=== PATIENT | male | born 1965 | race Two or more races ===

== ENCOUNTER 2024-11-19 20:58 | Inpatient (IN) | payer OTHER, MEDICAID ==
[~2024-11-19] VITALS: Ht 175.3 cm; Wt 68.0 kg
[2024-11-19] MEDS: VANCOMYCIN 1GM/250ML KIT 250 ML IV ONE (21:30)
--- NOTE | 2024-11-19 22:09 | DVH ---
EXAMINATION: CT CT L FOOT WO CONTRAST INDICATION: wound COMPARISON: None TECHNIQUE: CT of the left foot was performed without contrast. Volume transverse images were obtained reconstructed in multiple planes using bone and soft tissue algorithms. CTDIvol: 8 mGy. DLP: 260 mGy-cm. FINDINGS: Assessment is limited by lack of comparison exams, including recent radiographs, and also by patient motion artifact in the forefoot. Large 2.6 cm high-grade partial-thickness ulcer underlying the 2nd metatarsal head, with gas tract or fistula extending to the inferior cortex. Erosion of the underlying plantar aspects of the metatarsa l head and proximal phalangeal base. Significant soft tissue swelling. Copious gas extends through th e 1st webspace to the dorsal foot, extending proximally to the lateral ankle, and further superior al jackelyn the anterior muscle compartment of the lower leg. Along the extensor compartment of the lower leg at the level of the distal tibiofibular diaphyses, an ill-defined but encapsulated appearing collect ion measures a proximally 3.4 x 0.9 cm axially (image 60/246). Otherwise circumferential soft tissue swelling is present. No additional area of osseous erosion is identified. No acute fracture, or periostitis. [id number] degenerative changes of the tarsomet atarsal joints. IMPRESSION: 1. Exam limited as above. 2. Large plantar ulcer underlying the 2nd metatarsal head. Osteomyelitis of the 2nd metatarsal head a nd proximal phalangeal base, with high likelihood for further extent within the forefoot, possibly mi dfoot and hindfoot. 3. Extension of infection within soft tissues to the proximal extent of the acquired field of view in the lower leg. An abscess is partially imaged along the extensor tendon compartment. Orthopedic con sultation is recommended.
[2024-11-19 22:20] LABS: Hematocrit 41.0 % (41.0-53.0); Hemoglobin 13.6 g/dL (13.5-17.5); Mean Corpuscular Hemoglobin 28.0 pg (28.0-32.0); Mean Corpuscular Volume 84.5 fL (80.0-100.0); Nucleated Red Blood Cells % 0.0 %
[2024-11-19 22:24] VITALS: PULSE 89; RESP 17; O2SAT 99
[2024-11-19 22:31] LABS: Alanine Aminotransferase 36 U/L (7-40); Albumin 3.8 g/dL (3.2-4.8); Alkaline Phosphatase 112 U/L (46-116); Anion Gap 8 (5-15); BUN/Creatinine Ratio 12.1 (10.0-20.0); Bilirubin, Total 0.7 mg/dL (0.2-1.0); Blood Urea Nitrogen 14 mg/dL (9-23); Calcium 9.0 mg/dL (8.7-10.4); Carbon Dioxide 26 mmol/L (20-31); Chloride 99 mmol/L (98-107); Potassium 4.8 mmol/L (3.5-5.1); Total Protein 7.1 g/dL (5.7-8.2)
[2024-11-19 22:36] LABS: Lactic Acid w/Reflex 2.4 mmol/L (0.4-2.0)
[2024-11-19 22:37] LABS: Sodium 133 mmol/L (136-145)
[2024-11-19 22:38] LABS: Glucose 424 mg/dL (74-106)
[2024-11-19] MEDS: PIPERACILLIN-TAZOB 3.375GM 100 ML IV ONE (22:43)
--- NOTE | 2024-11-19 22:58 | ED.PDOC ---
Musculoskeletal HPI Comments 59-year-old male complaining of left foot pain and swelling going sitting into his lower leg. States the swelling started four days ago. He says wound started on the top of his foot with bad smell. Patient states he is diabetic. Only takes metformin for his diabetes. Denies any injury. Chief Complaint: Lower Extremity Time Seen by MD: 21:07 Reviewed Notes: Nurses Notes Allergies: Coded Allergies: NO KNOWN ALLERGIES (Unverified , 11/19/24) Information Source: Patient Mode of Arrival: Ambulatory Location: Left Extremity Location: Foot Past Medical History PAST MEDICAL HISTORY: DM, Denies Surgical History: Denies all surgeries Constitutional: denies: chills, diaphoresis, fatigue, fever, malaise, sweats, weakness, others EENTM: denies: blurred vision, double vision, ear bleeding, ear discharge, ear drainage, ear pain, ear ringing, eye pain, eye redness, hearing loss, mouth pain, mouth swelling, nasal discharge, nose bleeding, nose congestion, nose pain, photophobia, tearing, throat pain, throat swelling, voice changes, others Respiratory: denies: cough, hemoptysis, orthopnea, SOB at rest, shortness of breath, SOB with excertion, stridor, wheezing, others Cardiovascular: denies: chest pain, dizzy spells, diaphoresis, Dyspnea on exertion, edema, irregular heart beat, left arm pain, lightheadedness, palpitations, PND, syncope, others Gastrointestinal: denies: abdomen distended, abdominal pain, blood streaked bowels, constipated, diarrhea, dysphagia, difficulty swallowing, hematemesis, melena, nausea, poor appetite, poor fluid intake, rectal bleeding, rectal pain, vomiting, others Genitourinary: denies: burning, dysuria, flank pain, frequency, hematuria, incontinence, penile discharge, penile sore, pain, testicle pain, testicle swelling, urgency, others Neurological: denies: dizziness, fainting, headache, left sided numbness, left sided weakness, numbness, paresthesia, pre-existing deficit, right sided numbness, right sided weakness, seizure, speech problems, tingling, tremors, weakness, others Musculoskeletal: reports: joint swelling, muscle pain; denies: back pain, gout, joint pain, muscle stiffness, neck pain, others Integumetry: reports: wounds; denies: bruises, change in color, change in hair/nails, dryness, laceration, lesions, lumps, rash, others Physical Exam General Appearance: Moderate Distress, Normal HEENT: Normal ENT Inspection, Pharynx Normal, TMs Normal Neck: Full Range of Motion, Non-Tender, Normal, Normal Inspection Respiratory: Chest Non-Tender, Lungs Clear, No Accessory Muscle Use, No Respiratory Distress, Normal Breath Sounds Cardiovascular: No Edema, No JVD, No Murmur, No Gallop, Normal Peripheral Pulses, Regular Rate/Rhythm Breast Exam: Deferred Gastrointestinal: No Organomegaly, Non Tender, No Pulsatile Mass, Normal Bowel Sounds, Soft Genitalia: Deferred Pelvic: Deferred Rectal: Deferred Extremities: No calf tenderness, Normal capillary refill, Normal inspection, Normal range of motion, Non-tender, No pedal edema Musculoskeletal : Location: Left Extremity Location: Other (Erythema noted in the left lower extremity extending up to the mid calf region. Patient reports tenderness in the foot and all the way up to the mid calf/mid leg region.) Apperance: Normal Neurologic: Alert, academic dean II-XII nml as Tested, No Motor Deficits, Normal Affect, Normal Mood, No Sensory Deficits Cerebellar Function: Normal Reflexes: Normal Skin: Dry, Warm, Wounds (Wound to the left foot, small ulceration/drainage coming out of the top of the foot. 2 x 2 area of duskiness noted to be top of the foot. Foul odor.) Lymphatic: No Adenopathy Was a procedure done? Was a procedure done?: No Differential Diagnosis EXT Differential Diagnosis: Cellulitis, Deep Vein Thrombosis, Neurovascular injury, Other (Osteomyelitis, necrotizing fasciitis, gangrene) X-Ray, Labs, Meds, VS Vital Signs Date Time Temp Pulse Resp B/P (MAP) Pulse Ox O2 Delivery O2 Flow Rate FiO2 11/19/24 22:24 100.4 89 17 106/73 (84) 99 100.4 11/19/24 22:24 89 17 99 Room Air* 0 21 11/19/24 21:00 98.7 88 18 138/74 100 98.7 Lab Test 11/19/24 21:44 Range/Units White Blood Count 23.1 H 4.4-10.8 10^3/uL Red Blood Count 4.86 4.5-5.90 10^6/uL Hemoglobin 13.6 13.5-17.5 g/dL Hematocrit 41.0 41.0-53.0 % Mean Corpuscular Volume 84.5 80.0-100.0 fL Mean Corpuscular Hemoglobin 28.0 28.0-32.0 pg Mean Corpuscular Hemoglobin Concent 33.2 32.0-36.0 g/dL Red Cell Distribution Width 14.5 H 11.8-14.3 % Platelet Count 507 H 140-450 10^3/uL Mean Platelet Volume 8.4 6.9-10.8 fL Neutrophils (%) (Auto) 85.9 H 37.0-80.0 % Lymphocytes (%) (Auto) 7.4 L 10.0-50.0 % Monocytes (%) (Auto) 6.4 0.0-12.0 % Eosinophils (%) (Auto) 0.1 0.0-7.0 % Basophils (%) (Auto) 0.2 0.0-2.0 % Neutrophils # (Auto) 19.8 H 1.6-8.6 10 ^3/uL Lymphocytes # (Auto) 1.7 0.4-5.4 10 ^3/uL Monocytes # (Auto) 1.5 H 0-1.3 10 ^3/uL Eosinophils # (Auto) 0 0-0.8 10 ^3/uL Basophils # (Auto) 0 0-0.2 10 ^3/uL Nucleated Red Blood Cells 0.0 % Sodium Level 133 L 136-145 mmol/L Potassium Level 4.8 3.5-5.1 mmol/L Chloride Level 99 98-107 mmol/L Carbon Dioxide Level 26 20-31 mmol/L Anion Gap 8 5-15 Blood Urea Nitrogen 14 9-23 mg/dL Creatinine 1.16 0.700-1.30 mg/dL Glomerular Filtration Rate Calc 73 >90 mL/min BUN/Creatinine Ratio 12.1 10.0-20.0 Serum Glucose 424 *H 74-106 mg/dL Lactic Acid Level 2.4 *H 0.4-2.0 mmol/L Calcium Level 9.0 8.7-10.4 mg/dL Total Bilirubin 0.7 0.2-1.0 mg/dL Aspartate Amino Transferase (AST) 32 13-40 U/L Alanine Aminotransferase (ALT) 36 7-40 U/L Alkaline Phosphatase 112 46-116 U/L Total Protein 7.1 5.7-8.2 g/dL Albumin 3.8 3.2-4.8 g/dL Current Medications Medications (Trade) Dose Ordered Sig/Ralph Route Start Time Stop Time Status Last Admin Piperacillin Sod/ Tazobactam Sod 100 ml @ 100 mls/hr ONCE ONCE IV 11/19/24 21:30 11/19/24 22:29 DC 11/19/24 22:43 X-Ray, Labs, Meds, VS Comment CT left foot: MPRESSION: 1. Exam limited as above. 2. Large plantar ulcer underlying the 2nd metatarsal head. Osteomyelitis of the 2nd metatarsal head and proximal phalangeal base, with high likelihood for fu rther extent within the forefoot, possibly midfoot and hindfoot. 3. Extension of infection within soft tissues to the proximal extent of the acquired field of view in the lower leg. An abscess is partially imaged along the extensor tendon compartment. Orthopedic consultation is recommended. Consulted with , hiv prevention specialist on-call. He states that general surgery he can handle [id number] amputation and recommended call general surgeon transition mgr rn Spoke with , general surgery on-call. He will come in to evaluate the patient and the need for surgery. Patient is started on vancomycin and Zosyn Patient placed in room two Time of 1ST Reevaluation: 23:10 Reevaluation 1ST: Unchanged Patient Education/Counseling: Diagnosis, Treatment Family Education/Counseling: Diagnosis, Treatment Sepsis Sepsis Reasesment Focused Exam Orders: Laboratory Tests 11/19/24 21:44: Lactic Acid Level 2.4 Departure 1 Departure Time of Disposition: 23:04 Impression: Primary Impression: Osteomyelitis of ankle and foot Disposition: 09 ADMITTED INPATIENT Condition: Critical Critical Care Note Critical Care Time?: No Stability Stability form required: No Heart Score Heart Score: Heart Score Response (Comments) Value History N/A 0 EKG N/A 0 Age N/A 0 Risk Factors N/A 0 Troponin N/A 0 Total 0 MEERA NARVAEZ Nov 19, 2024 22:58
[2024-11-19] MEDS: SODIUM CHLORIDE 0.9% 2,100 ML IV ONE (23:15)
[2024-11-19 23:34] LABS: INR 1.14 (0.9-1.15); Prothrombin Time 11.9 sec (9.3-11.8)
--- NOTE | 2024-11-19 23:49 | DVHINCON2 ---
Date of service: Nov 19, 2024 History of Present Illness 59-year-old diabetic male complaining of over four day history of swelling and pain in the left foot. Patient reports fevers. Past Medical History Diabetes Past Surgical History None Family History Noncontributory Social History No alcohol or IV drugs. Reports tobacco use. Allergies: Coded Allergies: NO KNOWN ALLERGIES (Unverified , 11/19/24) Vital Signs Vital Signs Date Time Temp Pulse Resp B/P (MAP) Pulse Ox O2 Delivery O2 Flow Rate FiO2 11/19/24 22:24 100.4 89 17 106/73 (84) 99 100.4 11/19/24 22:24 Room Air* 0 21 Physical Exam GEN: Age-appropriate male in no acute distress. Alert. HEENT: Normocephalic atraumatic. Moist mucous membranes. Anicteric sclerae. CV: RRR Respiratory: CTAB ABD: Soft Left lower extremity: There is dry eschar involving the dorsum of the foot with foul-smelling purulent drainage coming from the left foot with erythema and fluctuance extending proximal his ankle. There is a large ulcer in the plantar surface ulcer with purulent drainage. CT of the left foot: Large 2.6 cm high-grade partial-thickness ulcer underlying the 2nd metatarsal head, with gas tract or fistula extending to the inferior cortex. Erosion of the underlying plantar aspects of the metatarsal head and proximal phalangeal base. Significant soft tissue swelling. Copious gas extends through the 1st webspace to the dorsal foot, extending proximally to the lateral ankle, and further superior along the anterior muscle compartment of the lower leg. Along the extensor compartment of the lower leg at the level of the distal tibiofibular diaphyses, an ill-defined but encapsulated appearing collection measures a proximally 3.4 x 0.9 cm axially (image 60/246). Otherwise circumferential soft tissue swelling is present. No additional area of osseous erosion is identified. No acute fracture, or periostitis. Mild-to- moderate degenerative changes of the tarsometatarsal joints. Labs/Diagnostic Data Labs Test 11/19/24 21:44 Range/Units White Blood Count 23.1 H 4.4-10.8 10^3/uL Red Blood Count 4.86 4.5-5.90 10^6/uL Hemoglobin 13.6 13.5-17.5 g/dL Hematocrit 41.0 41.0-53.0 % Mean Corpuscular Volume 84.5 80.0-100.0 fL Mean Corpuscular Hemoglobin 28.0 28.0-32.0 pg Mean Corpuscular Hemoglobin Concent 33.2 32.0-36.0 g/dL Red Cell Distribution Width 14.5 H 11.8-14.3 % Platelet Count 507 H 140-450 10^3/uL Mean Platelet Volume 8.4 6.9-10.8 fL Neutrophils (%) (Auto) 85.9 H 37.0-80.0 % Lymphocytes (%) (Auto) 7.4 L 10.0-50.0 % Monocytes (%) (Auto) 6.4 0.0-12.0 % Eosinophils (%) (Auto) 0.1 0.0-7.0 % Basophils (%) (Auto) 0.2 0.0-2.0 % Neutrophils # (Auto) 19.8 H 1.6-8.6 10 ^3/uL Lymphocytes # (Auto) 1.7 0.4-5.4 10 ^3/uL Monocytes # (Auto) 1.5 H 0-1.3 10 ^3/uL Eosinophils # (Auto) 0 0-0.8 10 ^3/uL Basophils # (Auto) 0 0-0.2 10 ^3/uL Nucleated Red Blood Cells 0.0 % Sodium Level 133 L 136-145 mmol/L Potassium Level 4.8 3.5-5.1 mmol/L Chloride Level 99 98-107 mmol/L Carbon Dioxide Level 26 20-31 mmol/L Anion Gap 8 5-15 Blood Urea Nitrogen 14 9-23 mg/dL Creatinine 1.16 0.700-1.30 mg/dL Glomerular Filtration Rate Calc 73 >90 mL/min BUN/Creatinine Ratio 12.1 10.0-20.0 Serum Glucose 424 *H 74-106 mg/dL Lactic Acid Level 2.4 *H 0.4-2.0 mmol/L Calcium Level 9.0 8.7-10.4 mg/dL Total Bilirubin 0.7 0.2-1.0 mg/dL Aspartate Amino Transferase (AST) 32 13-40 U/L Alanine Aminotransferase (ALT) 36 7-40 U/L Alkaline Phosphatase 112 46-116 U/L C-Reactive Protein High Sensitivity > 20.00 H <1.0 mg/dL Total Protein 7.1 5.7-8.2 g/dL Albumin 3.8 3.2-4.8 g/dL Assessment 1. 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 Plan/Recommendation 1. Left [id number] guillotine amputation. Once the infection resolves he will need a revision to a [id number] amputation closure. Informed consent: The surgery and its risks including but not limited to infection, bleeding requiring possible blood transfusion, possible perioperative HI or stroke were explained to the patient. All questions were answered to his satisfaction. He expressed verbal understanding and wished to proceed with the surgery. Plan discussed with: Patient ADIEL HERNANDES MD Nov 19, 2024 23:49
[2024-11-20] MEDS ORDERED: MORPHINE SULFATE INJ 2 MG/ml SYRG IV PRN (01:00)
[2024-11-20] MEDS ORDERED: ACETAMINOPHEN 325 MG TAB PO PRN (01:00)
[2024-11-20] MEDS ORDERED: NITROGLYCERIN 0.4 MG SL TAB SL PRN (01:00)
[2024-11-20] MEDS ORDERED: DOCUSATE SOD 100 MG CAP PO PRN (01:00)
[2024-11-20] MEDS ORDERED: ONDANSETRON HCL 4 MG/2 ML VIAL IV PRN ×2 (01:00→10:45)
[2024-11-20] MEDS: ENOXAPARIN SOD 40 MG/0.4 ML SYRINGE SC SCH (01:00)
[2024-11-20] MEDS ORDERED: HYDROcodone-ACET 5/325MG TAB PO PRN (01:00)
[2024-11-20] MEDS: SODIUM CHLORIDE 0.9% 1,000 ML IV SCH ×3 (01:00→18:00)
[2024-11-20] MEDS ORDERED: VANCOMYCIN PER PHARMACY 0 MG IV SCH (01:00)
[2024-11-20] MEDS: VANCOMYCIN 1GM/250ML KIT 250 ML IV ONE (02:29)
[2024-11-20] MEDS ORDERED: LATA0.008 EACHEYE (03:44)
[2024-11-20] MEDS ORDERED: ATOR20TA50 PO (03:44)
[2024-11-20] MEDS ORDERED: ERGO1CAP12 PO (03:44)
[2024-11-20] MEDS: INSULIN LANTUS (GLARGINE) 1 /0.01ml (100units/ml) SC SCH (03:45)
[2024-11-20] MEDS ORDERED: DEXTROSE (50%) 50ML SYRG IV PRN (03:45)
[2024-11-20 04:00] LABS: COVID19 ANTIGEN SOFIA FIA NEGATIVE (NEGATIVE)
[2024-11-20] MEDS: INSULIN LANTUS (GLARGINE) 1 /0.01ml (100units/ml) SC ONE ×2 (04:15→05:45)
[2024-11-20] MEDS: ACCU-CHEK COMFORT CURVE STRIP VI ONE (04:15)
[2024-11-20] MEDS ORDERED: PIPERACILLIN-TAZOB 3.375GM 100 ML IV SCH (06:00)
[2024-11-20] MEDS: InsuLIN REG 1unit/0.01ml Soln (100units/ml) SC SCH (06:00)
[2024-11-20] MEDS: ACCU-CHEK COMFORT CURVE STRIP VI SCH (06:00)
[2024-11-20] MEDS: CLINDAMYCIN 600MG IV 50 ML IV SCH (06:00)
[2024-11-20] MEDS: CEFEPIME 1GM/50ML 50 ML IV SCH (06:00)
[2024-11-20] MEDS ORDERED: INSULIN LANTUS (GLARGINE) 1 /0.01ml (100units/ml) SC SCH (06:30)
[2024-11-20 06:41] LABS: Urine Protein, UAD Negative (Negative)
[2024-11-20 06:42] LABS: Opiate Scree,Urine Neg (NEGATIVE)
[2024-11-20 06:46] LABS: Amphetamine Screen, Urine Neg (NEGATIVE); Barbiturate Scree,Urine Neg (NEGATIVE); Benzodiazephine Screen, Urine Neg (NEGATIVE); Cannabinoid Screen, Urine Neg (NEGATIVE); Cocaine Screen, Urine Neg (NEGATIVE); Phencyclidine Screen, Urine Neg (NEGATIVE)
[2024-11-20 06:59] LABS: Hematocrit 34.7 % (41.0-53.0); Hemoglobin 11.8 g/dL (13.5-17.5); Mean Corpuscular Hemoglobin 28.5 pg (28.0-32.0); Mean Corpuscular Volume 83.9 fL (80.0-100.0); Nucleated Red Blood Cells % 0.0 %
[2024-11-20 07:04] LABS: Chloride 104 mmol/L (98-107); Potassium 4.2 mmol/L (3.5-5.1); Sodium 137 mmol/L (136-145)
[2024-11-20 07:05] LABS: Anion Gap 6 (5-15); Carbon Dioxide 27 mmol/L (20-31)
[2024-11-20 07:06] LABS: Calcium 8.0 mg/dL (8.7-10.4)
[2024-11-20 07:08] LABS: INR 1.15 (0.9-1.15); Partial Thromboplastin Time 29.9 SEC (24.5-34.5); Prothrombin Time 12.0 sec (9.3-11.8)
[2024-11-20 07:11] LABS: BUN/Creatinine Ratio 15.7 (10.0-20.0); Blood Urea Nitrogen 14 mg/dL (9-23)
[2024-11-20 07:14] LABS: Glucose 294 mg/dL (74-106)
--- NOTE | 2024-11-20 07:18 | DVHHPRES ---
History of Present Illness Resident Creating Document: LYNETTE TRAMMELL RESIDENT History of Present Illness Mr. Raman is a 49-year-old male with a known history of diabetes mellitus who presented to the emergency department with worsening pain, swelling, and foul- smelling drainage from a chronic diabetic ulcer on the dorsum of his left foot. The ulcer has been present for approximately one year, but symptoms have significantly worsened over the past four days. He reports severe pain rated 10/10, radiating to the ankle, aggravated by walking and relieved with rest. Examination revealed erythema, foul-smelling purulent drainage, and a black eschar. Surgical consultation was obtained for further evaluation. Past medical history: Diabetes mellitus Past surgical history: Denies any surgeries Family history: Reviewed, noncontributory Social history: smokes 3-5 cigarettes per day since 25 years, denies drinking alcohol, drug use lives with: Family PCP: Dr. Keane Review of Systems Constitutional: No: Fever, Chills, Sweats, Weakness, Malaise, Other Eyes: No: Pain, Vision change, Conjunctivae inflammation, Eyelid inflammation, Other, Redness ENT: No: Ear pain, Ear discharge, Nose pain, Nose discharge, Nose congestion, Mouth pain, Mouth swelling, Throat pain, Throat swelling, Other Respiratory: No: Cough, Dry, Shortness of breath, SOB with excertion, Wheezing, Hemoptysis, Pleuritic Pain, Sputum, Wheezing, Other Cardiovascular: No: Chest Pain, Palpitations, Orthopnea, Paroxysmal Noc. Dyspnea, Edema, Lt Headedness, Other Gastrointestinal: No: Nausea, Vomiting, Abdominal Pain, Diarrhea, Constipation, Melena, Hematochezia, Other Genitourinary: No Dysuria, No Frequency, No Incontinence, No Hematuria, No Retention, No Other Musculoskeletal: foot pain Skin: No: Rash, Lesions, Jaundice, Bruising, Other Neurological: No: Weakness, Numbness, Incoordination, Change in speech, Confusion, Seizures, Other Allergies: Coded Allergies: NO KNOWN ALLERGIES (Unverified , 11/19/24) Medications Current Medications Medications Dose Ordered Sig/Ralph Route Start Time Stop Time Status Last Admin Dose Admin Acetaminophen 325 mg Q4HP PRN PO 11/20/24 01:00 Acetaminophen/ Hydrocodone Bitart 1 tab Q4HP PRN PO 11/20/24 01:00 Ondansetron HCl 4 mg Q4HP PRN IV 11/20/24 01:00 Docusate Sodium 100 mg BIDPRN PRN PO 11/20/24 01:00 Morphine Sulfate 2 mg Q4HPRN PRN IV 11/20/24 01:00 Enoxaparin Sodium 40 mg DAILY SC 11/20/24 01:00 11/20/24 01:00 40 MG Nitroglycerin 0.4 mg Q5MINP PRN SL 11/20/24 01:00 Morphine Sulfate 2 mg Q30M PRN IV 11/20/24 01:00 Vancomycin HCl 0 ml @ 0 mls/hr UD IV 11/20/24 01:00 UNV Clindamycin Phosphate 50 ml @ 50 mls/hr Q8HR IV 11/20/24 06:00 11/20/24 06:00 50 MLS/HR Cefepime HCl 50 ml @ 12.5 mls/hr Q8HR IV 11/20/24 06:00 Sodium Chloride 1,000 ml @ 100 mls/hr Q10H IV 11/20/24 03:45 11/20/24 03:51 100 MLS/HR Diagnostic Test (Pha) 1 strip Q6HR 11/20/24 06:00 11/20/24 06:00 1 STRIP Insulin Human Regular Q6HR SC 11/20/24 06:00 Dextrose 50 ml UD PRN IV 11/20/24 03:45 Atorvastatin Calcium 40 mg HS PO 11/20/24 22:00 Latanoprost 1 drop BID EACHEYE 11/20/24 10:00 UNV Insulin Glargine 20 units DAILY@1000 SC 11/21/24 10:00 Exam Vital Signs Vital Signs Date Time Temp Pulse Resp B/P (MAP) Pulse Ox O2 Delivery O2 Flow Rate FiO2 11/19/24 22:24 100.4 89 17 106/73 (84) 99 100.4 11/19/24 22:24 Room Air* 0 21 Exam General: Patient alert and oriented in person, place and time. Patient f ollowing commands. In moderate distress HEENT: Normocephalic, atraumatic, moist mucous membranes Respiratory/pulmonary: Clear lungs bilaterally, vesicular murmurs present in almost all lung baker, no associated crackles or wheezes. Cardiovascular: Normal heart sounds S1 and S2 with no associated murmurs Abdomen: Abdomen nondistended, there is no pain to palpation in any of the ab dominal quadrants, no palpable masses. Extremities: left foot ulcer on dorsal side, black eschar and erythema and left- sided 1+ pitting edema Peripheral Pulses: 3+ Radial (R). 3+ Radial (L). 3+ Dorsalis pedis (R). 3+ Dorsalis pedis(L) Skin: No rashes or pruritus, there is no sacral edema present at this time. Neurological: Intact cranial nerves with no focal neurologic deficits Labs/Xrays Labs Test 11/20/24 06:00 11/20/24 05:58 11/20/24 02:25 11/19/24 23:44 Range/Units Urine Color Light-yellow Yellow Urine Clarity Clear Clear Urine pH 5.5 5.0-9.0 Urine Specific [place] 1.042 H 1.001-1.035 Urine Protein Negative Negative Urine Ketones 1+ H Negative Urine Blood Negative Negative /uL Urine Nitrite Negative Negative Urine Bilirubin Negative Negative Urine Urobilinogen Normal Negative mg/dL Urine Leukocyte Esterase Negative Negative /uL Urine RBC 3 0 - 3 /hpf Urine Microscopic WBC 1 0-3 /HPF Urine Squamous Epithelial Cells Few <5 /hpf Urine Bacteria None seen None Seen /hpf Urine Glucose 4+ H Normal mg/dL Urine Opiates Screen Neg NEGATIVE Urine Fentanyl Screen Neg NEGATIVE Urine Barbiturates Screen Neg NEGATIVE Urine Phencyclidine Screen Neg NEGATIVE Urine Amphetamines Screen Neg NEGATIVE Urine Benzodiazepines Screen Neg NEGATIVE Urine Cocaine Screen Neg NEGATIVE Urine Cannabinoids Screen Neg NEGATIVE White Blood Count 20.1 H 4.4-10.8 10^3/uL Red Blood Count 4.14 L 4.5-5.90 10^6/uL Hemoglobin 11.8 L 13.5-17.5 g/dL Hematocrit 34.7 #L 41.0-53.0 % Mean Corpuscular Volume 83.9 80.0-100.0 fL Mean Corpuscular Hemoglobin 28.5 28.0-32.0 pg Mean Corpuscular Hemoglobin Concent 34.0 32.0-36.0 g/dL Red Cell Distribution Width 14.3 11.8-14.3 % Platelet Count 402 140-450 10^3/uL Mean Platelet Volume 8.3 6.9-10.8 fL Neutrophils (%) (Auto) 83.0 H 37.0-80.0 % Lymphocytes (%) (Auto) 8.8 L 10.0-50.0 % Monocytes (%) (Auto) 7.6 0.0-12.0 % Eosinophils (%) (Auto) 0.4 0.0-7.0 % Basophils (%) (Auto) 0.2 0.0-2.0 % Neutrophils # (Auto) 16.6 H 1.6-8.6 10 ^3/uL Lymphocytes # (Auto) 1.8 0.4-5.4 10 ^3/uL Monocytes # (Auto) 1.5 H 0-1.3 10 ^3/uL Eosinophils # (Auto) 0.1 0-0.8 10 ^3/uL Basophils # (Auto) 0 0-0.2 10 ^3/uL Nucleated Red Blood Cells 0.0 % Sodium Level 137 136-145 mmol/L Potassium Level 4.2 3.5-5.1 mmol/L Chloride Level 104 98-107 mmol/L Carbon Dioxide Level 27 20-31 mmol/L Anion Gap 6 5-15 Calcium Level 8.0 L 8.7-10.4 mg/dL Influenza Type A Antigen Negative Negative Influenza Type B Antigen Negative Negative SARS-CoV-2 Antigen (Rapid) Negative NEGATIVE Lactic Acid Level 1.8 0.4-2.0 mmol/L Test 11/19/24 21:44 Range/Units Total Bilirubin 0.7 0.2-1.0 mg/dL Aspartate Amino Transferase (AST) 32 13-40 U/L Alanine Aminotransferase (ALT) 36 7-40 U/L Alkaline Phosphatase 112 46-116 U/L C-Reactive Protein High Sensitivity > 20.00 H <1.0 mg/dL Total Protein 7.1 5.7-8.2 g/dL Albumin 3.8 3.2-4.8 g/dL SEPSIS Sepsis Screen Date sepsis recognized/suspect: Nov 19, 2024 Time Sepsis recognized/suspect: 2229 Recent Procedure: No On Antibiotic Therapy: No Respiratory Rate >20: No Heart Rate >90: No Temp<36 C (96.8 F) or >38.3 C: Yes SBP <90 or MAP <65 mmHG: No New Acute Mental Status Change: No Is the patient on CPAP, BIPAP,: No Physician Orders Obtain Consent For Anesthesia (11/19/24 23:35) Obtain Consent For: (11/19/24 23:35) PTPTT (11/20/24 04:00) Npo (Nothing By Mouth) Diet (11/20/24 Breakfast) Admit (11/20/24 00:47) Allergies (11/20/24 00:47) Code Status (11/20/24 00:47) Acetaminophen Tablet (Tylenol Tablet) (11/20/24 01:00) Hydrocodone-Acet 5/325mg Tab (Hatley 5/32 (11/20/24 01:00) Ondansetron Hcl (Zofran) (11/20/24 01:00) Docusate Sodium Capsule (Colace Capsule) (11/20/24 01:00) Complete Blood Count (11/21/24 04:00) Condition: Serious (11/20/24 00:47) Bedrest With Bathroom Privileg (11/20/24 00:47) Morphine Sulfate Injection (11/20/24 01:00) Enoxaparin Sodium (Lovenox) (11/20/24 01:00) Nitroglycerin Sublingual (Ntrostat Subli (11/20/24 01:00) Morphine Sulfate Injection (11/20/24 01:00) Oxygen By Nasal Cannula (11/20/24 00:47) Stat Ekg For Chest Pain (11/20/24 00:47) Notify Md Of Changes From Base (11/20/24 00:47) Primary Clinician For 24 Hours (11/20/24 00:47) Emergency Dysrhythmia Protocol (11/20/24 00:47) Rhythm Strips Once Every Shift (11/20/24 00:47) Vancomycin Per Pharmacy (11/20/24 01:00) Clindamycin 600mg Iv (Cleocin Iv) (11/20/24 06:00) Wound Culture W/ Gs (11/21/24 04:00) Lactic Acid W/ Reflex Order (11/21/24 04:00) Hemoglobin A1c (11/20/24 02:22) Wound Culture W/ Gs (11/20/24 03:01) Cefepime 1gm/ 50ml (Maxipime 1gm/50ml) (11/20/24 06:00) Sodium Chloride 0.9% (11/20/24 03:45) Glucose Blood (Accu-Chek Comfort Curve T (11/20/24 06:00) Insulin R (Human) (Insulin R) (11/20/24 06:00) Dextrose 50% Syringe (11/20/24 03:45) Basic Metabolic Panel (11/20/24 03:37) Thyroid Stimulating Hormone (11/20/24 03:41) Atorvastatin (Lipitor) (11/20/24 22:00) Ergocalciferol (Vitamin D 50,000 Unit) (11/20/24 10:00) Latanoprost (Xalatan) (11/20/24 10:00) Insulin Lantus (Glargine) (Lantus) (11/21/24 10:00) Laboratory Tests Test 11/19/24 21:44 11/19/24 23:44 11/20/24 05:58 Lactic Acid Level 2.4 mmol/L (0.4-2.0) *H 1.8 mmol/L (0.4-2.0) White Blood Count 23.1 10^3/uL (4.4-10.8) H 20.1 10^3/uL (4.4-10.8) H Medications Medications Dose Ordered Sig/Ralph Route Start Time Stop Time Status Last Admin Dose Admin Clindamycin Phosphate 50 ml @ 50 mls/hr Q8HR IV 11/20/24 06:00 11/20/24 06:00 50 MLS/HR Diagnostic Test (Pha) 1 strip ONCE ONCE 11/20/24 04:15 11/20/24 04:16 DC 11/20/24 04:15 1 STRIP Diagnostic Test (Pha) 1 strip Q6HR 11/20/24 06:00 11/20/24 06:00 1 STRIP Enoxaparin Sodium 40 mg DAILY SC 11/20/24 01:00 11/20/24 01:00 40 MG Insulin Glargine 20 units ONCE ONCE SC 11/20/24 04:15 11/20/24 04:16 DC 11/20/24 05:45 20 UNITS Piperacillin Sod/ Tazobactam Sod 100 ml @ 100 mls/hr ONCE ONCE IV 11/19/24 21:30 11/19/24 22:29 DC 11/19/24 22:43 100 MLS/HR Sodium Chloride 1,000 ml @ 60 mls/hr [id number] IV 11/20/24 01:00 11/20/24 03:42 DC 11/20/24 01:00 60 MLS/HR Sodium Chloride 1,000 ml @ 100 mls/hr Q10H IV 11/20/24 03:45 11/20/24 03:51 100 MLS/HR Sodium Chloride 2,100 ml @ 2,100 mls/hr ONCE ONCE IV 11/19/24 23:15 11/20/24 00:14 DC 11/19/24 23:15 2,100 MLS/HR Vancomycin HCl 250 ml @ 250 mls/hr ONCE ONCE IV 11/19/24 21:30 11/19/24 22:29 DC 11/19/24 23:30 250 MLS/HR Assessment/Plan Assessment/Plan # Severe sepsis with lactic acidosis due to gangrene # 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 Osteomyelitis of the 2nd metatarsal head and proximal phalangeal base, with high likelihood for further extent within the forefoot, possibly midfoot and hindfoot. Extension of infection within soft tissues to the proximal extent of the acquired field of view in the lower leg. An abscess is partially imaged along the extensor tendon compartment. - Surgery consulted, stated patient will undergo Left ieyrf-pth-ctya guillotine amputation. Once the infection resolves he will need a revision to a pmlsv-blo-sucy amputation closure. - IV fluids given - pain management with IV morphine 2 mg, Hatley 5 D # uncontrolled diabetes mellitus with hyperglycemia - Lantus 20 units, mild sliding scale started # dyslipidemia - Atorvastatin 40 mg # glaucoma - Latanoprost # vit. D deficiency - Vitamin-D 83786 units per week PPI prophylaxis: Not indicated DVT prophylaxis: Lovenox 40 mg Goals of care addressed with the patient for more than 27 minutes: Full code status Case discussed with Dr. Deleon , patient and nurse Plan discussed with: Patient My Orders Orders - LYNETTE TRAMMELL RESIDENT Procedure Category Date Status Time Admit ADMIT 11/20/24 Transmitted 00:47 Allergies [place] 11/20/24 In Process 00:47 Code Status CODE 11/20/24 Transmitted 00:47 Acetaminophen Tablet PHA 11/20/24 In Process (Tylenol Tablet) 01:00 Hydrocodone-Acet PHA 11/20/24 In Process 5/325mg Tab (Hatley 01:00 Ondansetron Hcl PHA 11/20/24 In Process (Zofran) 01:00 Docusate Sodium PHA 11/20/24 In Process Capsule (Colace 01:00 Complete Blood Count LAB 11/21/24 Verified 04:00 Condition: Serious [place] 11/20/24 In Process 00:47 Bedrest With Bathroom AZ 11/20/24 In Process Privileg 00:47 Morphine Sulfate PHA 11/20/24 In Process Injection 01:00 Enoxaparin Sodium PHA 11/20/24 In Process (Lovenox) 01:00 Nitroglycerin PHA 11/20/24 In Process Sublingual (Ntrostat 01:00 Morphine Sulfate PHA 11/20/24 In Process Injection 01:00 Oxygen By Nasal RT 11/20/24 Transmitted Cannula 00:47 Stat Ekg For Chest AZ 11/20/24 In Process Pain 00:47 Notify Md Of Changes AZ 11/20/24 In Process From Base 00:47 Primary Clinician For AZ 11/20/24 In Process 24 Hours 00:47 Emergency Dysrhythmia AZ 11/20/24 In Process Protocol 00:47 Rhythm Strips Once [place] 11/20/24 In Process Every Shift 00:47 Vancomycin Per PHA 11/20/24 Pending Pharmacy 01:00 Clindamycin 600mg Iv PHA 11/20/24 In Process (Cleocin Iv) 06:00 Wound Culture W/ Gs GERMAN 11/21/24 Logged 04:00 Lactic Acid W/ Reflex LAB 11/21/24 Verified Order 04:00 Hemoglobin A1c LAB 11/20/24 In Process 02:22 Date of Service: Nov 20, 2024 Billing Provider: JACQUELINE DELEON MD Common Visit Codes: [id number] INP/OBS CARE (HIGH) Secondary Visit Codes: [id number] CARE PLAN 30 MINUTES LYNETTE TRAMMELL Nov 20, 2024 07:18
[2024-11-20] MEDS: Lidocaine/Epinephrine 1%-1:100,000 30ML VL ONE (08:29)
[2024-11-20] MEDS: ceFAZolin 1GM VL ONE (08:29)
[2024-11-20] MEDS ORDERED: fentaNYL CITRATE 100 MCG/2 ML VL ONE ×2 (08:53→09:52)
[2024-11-20] MEDS ORDERED: PROPOFOL 10 MG/ML 20 ML IV ONE (08:53)
[2024-11-20] MEDS ORDERED: HYDROmorphone HCL 2 MG/ML VL/or syr ONE (08:53)
[2024-11-20] MEDS ORDERED: PHENYLEPHRINE HCL 10 MG/ML VL ONE (09:27)
[2024-11-20 10:27] VITALS: PULSE 86; RESP 15; O2SAT 100
[2024-11-20] MEDS ORDERED: ACETAMINOPHEN IV 1000 MG/100ML (10MG/ML) IV PRN (10:45)
[2024-11-20] MEDS ORDERED: HYDROmorphone HCL 2 MG/ML VL/or syr IV PRN (10:45)
--- NOTE | 2024-11-20 10:45 | DVHOP2 ---
Operative Report - 2 Report Details Date: 11/20/24 Preop Diagnosis: Large left diabetic foot ulcer with wet gangrene Postop Diagnosis: Same Surgeon: Adiel Le MD Solvent Process Extractor Operator: None Anesthesiologist: Dr. Espinoza Anesthesia: General Consent: The surgery and its risks including but not limited to infection, bleeding requiring possible blood transfusion with the risk of hepatitis or HIV infection, possible perioperative AL or stroke were explained to the patient. All questions were answered to his satisfaction. He expressed verbal understanding and wished to proceed with the surgery. Complications: None Estimated Blood Loss: 20 mL Fluids: 700 mL Findings: 25 minutes of tourniquet time at 230 mmHg Name of Procedure Performed Left ipjzd-vuf-xgcu guillotine amputation Procedure Details Procedure Details: After induction of general anesthesia, patient's left lower extremity was prepped and draped in standard surgical fashion. An Esmarch was used to exsanguinate the left lower extremity and the tourniquet was turned on to 230 mmHg. A circumferential incision was made about 10 cm above the malleolus and incision extended through the anterior compartments to the bone. Both the tibia and fibula were amputated at this level. The anterior tibial and peroneal vessels were suture ligated using 0 Vicryl sutures. Dissection proceeded through the posterior compartments and the posterior tibial vessels were suture ligated using 0 Vicryl sutures. He amputation was then completed and specimen was then sent off to pathology. The tourniquet was then turned off with a total tourniquet time of 25 minutes. Surgical dressing was then applied. Sponge, needle, instrument count at the end of the case were reported to be correct by the nursing staff. The patient tolerated procedure well and was awake, extubated and transferred to recovery in stable condition. Specimen: Left foot Condition Stable Disposition Still a Patient ADIEL LE MD Nov 20, 2024 10:45
[2024-11-20] MEDS: VANCOMYCIN 1.25GM/250ML 250 ML IV SCH (12:55)
[2024-11-20] MEDS: CEFEPIME 2GM/50ML NS 50 ML IV SCH (14:31)
--- NOTE | 2024-11-20 14:54 | DVHPNRES ---
Progress Note Date Seen: Nov 20, 2024 Resident Creating Document: EVE JACOBSEN RESIDENT Medical Necessity Reason Pt with a Central, PICC or Fol: No Medical Necessity Reason Objective vital signs Vital Sign Date Time Temp Pulse Resp B/P (MAP) Pulse Ox O2 Delivery O2 Flow Rate FiO2 11/20/24 11:00 82 14 167/84 (111) 97 11/20/24 10:27 98.6 98.6 11/20/24 10:27 Mask 6.0 11/20/24 10:27 100 medications Current Medications Medications Dose Ordered Sig/Ralph Route Start Time Stop Time Status Last Admin Dose Admin Acetaminophen 325 mg Q4HP PRN PO 11/20/24 01:00 Acetaminophen/ Hydrocodone Bitart 1 tab Q4HP PRN PO 11/20/24 01:00 Ondansetron HCl 4 mg Q4HP PRN IV 11/20/24 01:00 Docusate Sodium 100 mg BIDPRN PRN PO 11/20/24 01:00 Morphine Sulfate 2 mg Q4HPRN PRN IV 11/20/24 01:00 Nitroglycerin 0.4 mg Q5MINP PRN SL 11/20/24 01:00 Morphine Sulfate 2 mg Q30M PRN IV 11/20/24 01:00 Vancomycin HCl 0 ml @ 0 mls/hr UD IV 11/20/24 01:00 Clindamycin Phosphate 50 ml @ 50 mls/hr Q8HR IV 11/20/24 06:00 11/20/24 13:42 50 MLS/HR Diagnostic Test (Pha) 1 strip Q6HR 11/20/24 06:00 11/20/24 06:00 1 STRIP Insulin Human Regular Q6HR SC 11/20/24 06:00 11/20/24 14:24 10 UNITS Dextrose 50 ml UD PRN IV 11/20/24 03:45 Atorvastatin Calcium 40 mg HS PO 11/20/24 22:00 Latanoprost 1 drop HS EACHEYE 11/20/24 22:00 Insulin Glargine 20 units DAILY@1000 SC 11/21/24 10:00 Cefepime HCl 50 ml @ 12.5 mls/hr Q8HR IV 11/20/24 14:00 11/20/24 14:31 12.5 MLS/HR Vancomycin HCl 250 ml @ 200 mls/hr Q12H IV 11/20/24 10:00 11/20/24 12:55 200 MLS/HR Sodium Chloride 1,000 ml @ 75 mls/hr [id number] IV 11/20/24 10:45 laboratory and microbiology Laboratory Tests 11/20/24 05:58 Test 11/20/24 05:58 Range/Units Serum Glucose 294 #H 74-106 mg/dL Problem List/Assessment/Plan Plan discussed with: Patient EVE JACOBSEN RESIDENT Nov 20, 2024 14:54
[2024-11-20 15:30] VITALS: BP 156/83; PULSE 91; RESP 20; TEMP 100.1; O2SAT 98
[2024-11-20] MEDS ORDERED: METF-372 PO (16:40)
[2024-11-20 17:22] VITALS: TEMP 99.7
--- NOTE | 2024-11-20 18:48 | DVHPNRES ---
Progress Note Date Seen: Nov 20, 2024 Resident Creating Document: EVE JACOBSEN RESIDENT Medical Necessity Reason Pt with a Central, PICC or Fol: No Subjective Review of Systems Zachary Raman is a 59-year-old male who presented to the emergency department with worsening pain, swelling, and foul-smelling drainage from a chronic diabetic ulcer on the dorsum of his left foot. The ulcer has been present for approximately one year, but symptoms have significantly worsened over the past four days. He reports severe pain rated 10/10, radiating to the ankle aggravated by walking and relieved by rest. Denies fever, chills, dyspnea, chest pain, unintentional weight loss, bleeding and motor or sensory deficits. Past medical history: Dyslipidemia, diabetes mellitus, diabetic foot, glaucoma, vitamin-D deficiency Surgical history: Denies Family history: Noncontributory Social history: Lives in [place] with family. Current smoker (approximately 10 pack-year history of smoking). Denies current alcohol and other drug abuse. Allergies: Denies Home medication: Atorvastatin 20 mg p.o. daily, vitamin-D, latanoprost, metformin 1000 mg p.o. b.i.d.. Patient seen and examined at bedside. Patient is currently immediate status post operation of wqhzi-vjf-ztdr amputation. We will optimize pain treatment and we will progress diet. Objective vital signs Vital Sign Date Time Temp Pulse Resp B/P (MAP) Pulse Ox O2 Delivery O2 Flow Rate FiO2 11/20/24 17:22 99.7 99.7 11/20/24 15:40 Room Air* 0 21 11/20/24 15:30 91 20 156/83 (107) 98 medications Current Medications Medications Dose Ordered Sig/Ralph Route Start Time Stop Time Status Last Admin Dose Admin Acetaminophen 325 mg Q4HP PRN PO 11/20/24 01:00 Acetaminophen/ Hydrocodone Bitart 1 tab Q4HP PRN PO 11/20/24 01:00 Ondansetron HCl 4 mg Q4HP PRN IV 11/20/24 01:00 Docusate Sodium 100 mg BIDPRN PRN PO 11/20/24 01:00 Morphine Sulfate 2 mg Q4HPRN PRN IV 11/20/24 01:00 Nitroglycerin 0.4 mg Q5MINP PRN SL 11/20/24 01:00 Morphine Sulfate 2 mg Q30M PRN IV 11/20/24 01:00 Vancomycin HCl 0 ml @ 0 mls/hr UD IV 11/20/24 01:00 Clindamycin Phosphate 50 ml @ 50 mls/hr Q8HR IV 11/20/24 06:00 11/20/24 13:41 50 MLS/HR Diagnostic Test (Pha) 1 strip Q6HR 11/20/24 06:00 11/20/24 18:12 1 STRIP Insulin Human Regular Q6HR SC 11/20/24 06:00 11/20/24 18:12 4 UNITS Dextrose 50 ml UD PRN IV 11/20/24 03:45 Atorvastatin Calcium 40 mg HS PO 11/20/24 22:00 Latanoprost 1 drop HS EACHEYE 11/20/24 22:00 Insulin Glargine 20 units DAILY@1000 SC 11/21/24 10:00 Cefepime HCl 50 ml @ 12.5 mls/hr Q8HR IV 11/20/24 14:00 11/20/24 14:31 12.5 MLS/HR Vancomycin HCl 250 ml @ 200 mls/hr Q12H IV 11/20/24 10:00 11/20/24 12:55 200 MLS/HR Sodium Chloride 1,000 ml @ 75 mls/hr [id number] IV 11/20/24 10:45 11/20/24 18:00 75 MLS/HR Examination Patient lying in bed, in no acute distress General: Lucid, afebrile, mucosae are moist Cardiovascular: Normal S1 and S2. No murmurs, gallops or rubs Respiratory: Normal ventilation mechanics. Clear lung sounds on auscultation Abdomen: Soft, nontender, no organomegaly, normal bowel sounds MSK/skin: Mobilizes 4 limbs. Skin is dry and warm. Fdgsw-jeu-llpn amputation under gauze. Neurological: Oriented in 3 spheres. No motor no sensitive deficits. Pupils are isocoric and reactive laboratory and microbiology Laboratory Tests 11/20/24 05:58 Test 11/20/24 05:58 Range/Units Serum Glucose 294 #H 74-106 mg/dL Problem List/Assessment/Plan Problem List/Assessment/Plan ASSESSMENT Left diabetic foot complicated with osteomyelitis of the 2nd metatarsal head and proximal phalangeal base - status postop of left supramalleolar amputation 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 Left hzsls-hfe-mvir guillotine Severe sepsis with lactic acidosis due to gangrene Reactive thrombocytosis Diabetes-uncontrolled (hemoglobin A1c 9.5%) Dyslipidemia Glaucoma Vitamin-D deficiency Hypocalcemia Hypokalemia PLAN Completed left foot CT: Large plantar ulcer underlying the 2nd metatarsal head. Osteomyelitis of 2nd metatarsal head and proximal phalangeal base with high likelihood of further extent within the forefoot, possibly midfoot and hindfoot. Extension infection within soft tissue proximal extent of acquired feel view. An abscess is partially imaged along the extensor tendon compartment. shipping and receiving specialist was consulted: Completed rxtjv-oxr-exiz amputation, planning on secondary closure. He will re-evaluate the following days. Patient required IV fluids and optimal in pain medication Patient currently on empiric IV antibiotic (cefepime and vancomycin, previously on clindamycin). Vanco trough 23.1 on 11/22/2024 Partial wound culture left leg -moderate white blood cells since moderate Gram- positive cocci in pair with few Gram-positive rods Patient is currently insulin sliding scale, Lantus 20 units SC at bedtime Surgery consult appreciated, s/p L BKA guillotine amputation POD #2. BKA revision once infection improves. plan prob later this week or early next week. Goals of care discussed with patient for over 20 minutes: Full code status Discussed plan with Dr. Luis. Plan discussed with: Patient, Other (Nurse) My Orders My Orders Orders - EVE JACOBSEN Procedure Category Date Status Time Education - Smoking [place] 11/20/24 In Process Cessation 17:12 * Smoking Cessation CONS 11/20/24 Transmitted Consult 17:12 Date of Service: Nov 20, 2024 Billing Provider: JEVON LUIS MD Common Visit Codes: [id number] INP/OBS CARE(HIGH) EVE JACOBSEN Nov 20, 2024 18:48 KAVIN TAPIA Nov 22, 2024 00:02 JEVON LUIS MD Nov 23, 2024 22:35
[2024-11-20 21:00] VITALS: BP 147/88; PULSE 96; RESP 18; TEMP 100.2; O2SAT 96
[2024-11-20] MEDS: ATORVASTATIN 20 MG TAB PO SCH (21:57)
[2024-11-20] MEDS: LATANOPROST 0.005 % OPTH(EYE) SOL 2.5ML EACHEYE SCH (21:58)
[2024-11-21] VITALS (7 sets, daily range): BP systolic 133–148; BP diastolic 73–86; PULSE 75–85; RESP 17–18; TEMP 97.7–100.4; O2SAT 96–100
[2024-11-21 06:09] LABS: Hematocrit 33.4 % (41.0-53.0); Hemoglobin 11.3 g/dL (13.5-17.5); Mean Corpuscular Hemoglobin 28.3 pg (28.0-32.0); Mean Corpuscular Volume 83.6 fL (80.0-100.0); Nucleated Red Blood Cells % 0.0 %
[2024-11-21 06:32] LABS: Alanine Aminotransferase 33 U/L (7-40); Alkaline Phosphatase 99 U/L (46-116); Anion Gap 8 (5-15); BUN/Creatinine Ratio 12.5 (10.0-20.0); Blood Urea Nitrogen 9 mg/dL (9-23); Carbon Dioxide 25 mmol/L (20-31); Chloride 103 mmol/L (98-107); Magnesium 1.9 mg/dL (1.6-2.6); Total Protein 5.7 g/dL (5.7-8.2)
[2024-11-21 06:33] LABS: Bilirubin, Total 0.6 mg/dL (0.2-1.0)
[2024-11-21 06:34] LABS: Albumin 3.0 g/dL (3.2-4.8); Calcium 7.9 mg/dL (8.7-10.4); Glucose 172 mg/dL (74-106); Potassium 3.3 mmol/L (3.5-5.1); Sodium 136 mmol/L (136-145)
--- NOTE | 2024-11-21 09:09 | DVHPN2 ---
Progress Note - Dictate Date Seen: Nov 21, 2024 Medical Necessity Reason Pt with a Central, PICC or Fol: No Subjective E: no major events o/n. no complaints. vital signs Vital Sign Date Time Temp Pulse Resp B/P (MAP) Pulse Ox O2 Delivery O2 Flow Rate FiO2 11/21/24 07:40 18 Room Air* 0 21 11/21/24 05:00 98.5 83 139/79 (99) 97 98.5 Total Intake and Output 11/20/24 11/20/24 11/21/24 15:00 23:00 07:00 Intake Total 25 ml 50 ml 1550 ml Output Total 1000 ml Balance 25 ml 50 ml 550 ml medications Current Medications Medications Dose Ordered Sig/Ralph Route Start Time Stop Time Status Last Admin Dose Admin Acetaminophen 325 mg Q4HP PRN PO 11/20/24 01:00 Ondansetron HCl 4 mg Q4HP PRN IV 11/20/24 01:00 Morphine Sulfate 2 mg Q4HPRN PRN IV 11/20/24 01:00 Vancomycin HCl 0 ml @ 0 mls/hr UD IV 11/20/24 01:00 Diagnostic Test (Pha) 1 strip Q6HR 11/20/24 06:00 11/21/24 05:16 1 STRIP Insulin Human Regular Q6HR SC 11/20/24 06:00 11/21/24 05:18 3 UNITS Dextrose 50 ml UD PRN IV 11/20/24 03:45 Atorvastatin Calcium 40 mg HS PO 11/20/24 22:00 11/20/24 21:57 40 MG Latanoprost 1 drop HS EACHEYE 11/20/24 22:00 11/20/24 21:58 1 DROP Insulin Glargine 20 units DAILY@1000 SC 11/21/24 10:00 Cefepime HCl 50 ml @ 12.5 mls/hr Q8HR IV 11/20/24 14:00 11/21/24 06:02 12.5 MLS/HR Vancomycin HCl 250 ml @ 200 mls/hr Q12H IV 11/20/24 10:00 11/20/24 22:11 200 MLS/HR Sodium Chloride 1,000 ml @ 75 mls/hr [id number] IV 11/20/24 10:45 11/21/24 00:05 75 MLS/HR objective GEN: NAD LLE: very min bloody oozing. decreasing edema/erythema laboratory and microbiology Laboratory Tests 11/21/24 05:28 Test 11/21/24 05:28 Range/Units Serum Glucose 172 #H 74-106 mg/dL Assessment/Plan A: 1. s/p L BKA guillotine amputation POD #1 P: 1. cont local wound care 2. BKA revision once infection improves. plan prob later this week or early next week. Plan discussed with: Patient ADIEL HERNANDES MD Nov 21, 2024 09:09
[2024-11-21] MEDS: INSULIN LANTUS (GLARGINE) 1 /0.01ml (100units/ml) SC SCH (09:54)
[2024-11-21] MEDS: POTASSIUM CHL 10 Meq TABLET PO ONE (09:54)
[2024-11-21] MEDS: ERGOCALCIFEROL 50,000 UNIT(1.25MG) CAP PO ONE (09:54)
[2024-11-21] MEDS ORDERED: VANCOMYCIN 1.25GM/250ML 250 ML IV SCH (13:00)
[2024-11-21] MEDS: VANCOMYCIN 1.25GM/250ML 250 ML IV SCH (17:27)
--- NOTE | 2024-11-21 22:13 | DVHPNRES ---
Progress Note Date Seen: Nov 21, 2024 Resident Creating Document: KAVIN TAPIA RESIDENT Medical Necessity Reason Pt with a Central, PICC or Fol: No Subjective Review of Systems Zachary Raman is a 59-year-old male who presented to the emergency department with worsening pain, swelling, and foul-smelling drainage from a chronic diabetic ulcer on the dorsum of his left foot. The ulcer has been present for approximately one year, but symptoms have significantly worsened over the past four days. He reports severe pain rated 10/10, radiating to the ankle aggravated by walking and relieved by rest. Denies fever, chills, dyspnea, chest pain, unintentional weight loss, bleeding and motor or sensory deficits. Past medical history: Dyslipidemia, diabetes mellitus, diabetic foot, glaucoma, vitamin-D deficiency Surgical history: Denies Family history: Noncontributory Social history: Lives in [place] with family. Current smoker (approximately 10 pack-year history of smoking). Denies current alcohol and other drug abuse. Allergies: Denies Home medication: Atorvastatin 20 mg p.o. daily, vitamin-D, latanoprost, metformin 1000 mg p.o. b.i.d.. Patient seen and examined at bedside. Currently has no new complaints, he presents no postop pain. transfer specialist evaluated the patient, he is planning on re-evaluating in deciding when to complete closure of left supramalleolar amputation. Pending cultures Objective vital signs Vital Sign Date Time Temp Pulse Resp B/P (MAP) Pulse Ox O2 Delivery O2 Flow Rate FiO2 11/21/24 21:00 97.7 77 18 133/73 (93) 100 97.7 11/21/24 20:00 Room Air* 0 21 Total Intake and Output 11/20/24 11/20/24 11/21/24 15:00 23:00 07:00 Intake Total 25 ml 50 ml 1550 ml Output Total 1000 ml Balance 25 ml 50 ml 550 ml medications Current Medications Medications Dose Ordered Sig/Ralph Route Start Time Stop Time Status Last Admin Dose Admin Acetaminophen 325 mg Q4HP PRN PO 11/20/24 01:00 Ondansetron HCl 4 mg Q4HP PRN IV 11/20/24 01:00 Morphine Sulfate 2 mg Q4HPRN PRN IV 11/20/24 01:00 Vancomycin HCl 0 ml @ 0 mls/hr UD IV 11/20/24 01:00 Diagnostic Test (Pha) 1 strip Q6HR 11/20/24 06:00 11/21/24 17:27 1 STRIP Insulin Human Regular Q6HR SC 11/20/24 06:00 11/21/24 17:27 4 UNITS Dextrose 50 ml UD PRN IV 11/20/24 03:45 Atorvastatin Calcium 40 mg HS PO 11/20/24 22:00 11/21/24 21:10 40 MG Latanoprost 1 drop HS EACHEYE 11/20/24 22:00 11/21/24 21:28 1 DROP Insulin Glargine 20 units DAILY@1000 SC 11/21/24 10:00 11/21/24 09:54 20 UNITS Cefepime HCl 50 ml @ 12.5 mls/hr Q8HR IV 11/20/24 14:00 11/21/24 21:10 12.5 MLS/HR Sodium Chloride 1,000 ml @ 75 mls/hr [id number] IV 11/20/24 10:45 11/21/24 13:25 75 MLS/HR Vancomycin HCl 250 ml @ 200 mls/hr Q8H IV 11/21/24 13:00 UNV Vancomycin HCl 250 ml @ 200 mls/hr Q8H IV 11/21/24 18:00 11/21/24 17:27 200 MLS/HR Examination Patient lying in bed, in no acute distress General: Lucid, afebrile, mucosae are moist Cardiovascular: Normal S1 and S2. No murmurs, gallops or rubs Respiratory: Normal ventilation mechanics. Clear lung sounds on auscultation Abdomen: Soft, nontender, no organomegaly, normal bowel sounds MSK/skin: Mobilizes 4 limbs. Presents supramalleolar amputation which is open, borders erythematous, no purulent discharge to seen. Rest of skin is dry and warm Neurological: Oriented in 3 spheres. No motor no sensitive deficits. Pupils are isocoric and reactive laboratory and microbiology Laboratory Tests 11/21/24 05:28 Test 11/21/24 05:28 Range/Units Serum Glucose 172 #H 74-106 mg/dL Microbiology Date/Time Source Procedure Growth Status 11/20/24 09:56 Leg Left Gram Stain - Final Resulted 11/20/24 09:56 Leg Left Anaerobic Culture - Preliminary Resulted 11/20/24 09:56 Leg Left Aerobic Culture - Preliminary Resulted 11/19/24 21:44 Blood Blood Culture - Preliminary NO GROWTH AFTER 48 HOURS OF INCUBATION. 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 Osteomyelitis of 2nd metatarsal head and proximal phalangeal base with high likelihood of further extent within the forefoot, possibly midfoot and hindfoot. Extension infection within soft tissue proximal extent of acquired feel view. An abscess is partially imaged along the extensor tendon compartment. transfer specialist was consulted: Completed bndac-eme-zjis amputation, planning on secondary closure. He will re-evaluate the falling days. Patient required IV fluids and optimal in pain medication Patient currently on empiric IV antibiotic (cefepime and vancomycin, previously on clindamycin). Pending culture results (blood, urine and surgical) Patient is currently on mild insulin sliding scale Goals of care discussed with patient for over 18 minutes: Full code status Discussed plan with Dr. Vallejo, patient and nurses: Patient currently is status postop of left tbjej-gzw-lhbw amputation, patient on IV fluids and pain therapy. transfer specialist on board, planning on re-evaluating for eventual closure of surgical site, we will be done during this week or the next. Plan discussed with: Patient, Other (Nurses) Date of Service: Nov 21, 2024 Billing Provider: JEVON VALLEJO MD Common Visit Codes: [id number] INP/OBS CARE(HIGH) KAVIN TAPIA RESIDENT Nov 21, 2024 22:13 JEVON VALLEJO MD Nov 28, 2024 21:27
[2024-11-22] VITALS (7 sets, daily range): BP systolic 142–159; BP diastolic 78–87; PULSE 68–75; RESP 16–18; TEMP 97.7–98.5; O2SAT 97–99
[2024-11-22 07:03] LABS: Hematocrit 35.0 % (41.0-53.0); Hemoglobin 12.0 g/dL (13.5-17.5); Mean Corpuscular Hemoglobin 28.5 pg (28.0-32.0); Mean Corpuscular Volume 83.1 fL (80.0-100.0); Nucleated Red Blood Cells % 0.0 %
[2024-11-22 07:10] LABS: Anion Gap 5 (5-15); Carbon Dioxide 26 mmol/L (20-31); Chloride 106 mmol/L (98-107); Potassium 3.6 mmol/L (3.5-5.1); Sodium 137 mmol/L (136-145)
[2024-11-22 07:17] LABS: BUN/Creatinine Ratio 11.9 (10.0-20.0); Magnesium 2.0 mg/dL (1.6-2.6)
[2024-11-22 07:32] LABS: Blood Urea Nitrogen 8 mg/dL (9-23); Calcium 7.9 mg/dL (8.7-10.4); Glucose 156 mg/dL (74-106)
--- NOTE | 2024-11-22 19:32 | DVHPNRES ---
Progress Note Date Seen: Nov 22, 2024 Resident Creating Document: EVE JACOBSEN RESIDENT Medical Necessity Reason Pt with a Central, PICC or Fol: No Subjective Review of Systems Zachary Raman is a 59-year-old male who presented to the emergency department with worsening pain, swelling, and foul-smelling drainage from a chronic diabetic ulcer on the dorsum of his left foot. The ulcer has been present for approximately one year, but symptoms have significantly worsened over the past four days. He reports severe pain rated 10/10, radiating to the ankle aggravated by walking and relieved by rest. Denies fever, chills, dyspnea, chest pain, unintentional weight loss, bleeding and motor or sensory deficits. Past medical history: Dyslipidemia, diabetes mellitus, diabetic foot, glaucoma, vitamin-D deficiency Surgical history: Denies Family history: Noncontributory Social history: Lives in [place] with family. Current smoker (approximately 10 pack-year history of smoking). Denies current alcohol and other drug abuse. Allergies: Denies Home medication: Atorvastatin 20 mg p.o. daily, vitamin-D, latanoprost, metformin 1000 mg p.o. b.i.d. Patient seen today in bedside. Denies any fever, abdominal pain, dysuria, or any acute distress. Surgical site looks healthy and no discharge or bleeding noted. Patient surgical site pain well controlled with current medication. Surgery consult appreciated, s/p L BKA guillotine amputation, POD #2. BKA revision once infection improves. plan prob later this week or early next week. Objective vital signs Vital Sign Date Time Temp Pulse Resp B/P (MAP) Pulse Ox O2 Delivery O2 Flow Rate FiO2 11/22/24 17:00 98.2 71 17 153/79 (103) 99 98.2 11/22/24 07:40 Room Air* 0 21 Total Intake and Output 11/21/24 11/21/24 11/22/24 15:00 23:00 07:00 Intake Total 850 ml 1875 ml Output Total 650 ml 2300 ml Balance 200 ml -425 ml medications Current Medications Medications Dose Ordered Sig/Ralhp Route Start Time Stop Time Status Last Admin Dose Admin Acetaminophen 325 mg Q4HP PRN PO 11/20/24 01:00 Ondansetron HCl 4 mg Q4HP PRN IV 11/20/24 01:00 Morphine Sulfate 2 mg Q4HPRN PRN IV 11/20/24 01:00 Vancomycin HCl 0 ml @ 0 mls/hr UD IV 11/20/24 01:00 Diagnostic Test (Pha) 1 strip Q6HR 11/20/24 06:00 11/22/24 17:43 1 STRIP Insulin Human Regular Q6HR SC 11/20/24 06:00 11/22/24 17:47 4 UNITS Dextrose 50 ml UD PRN IV 11/20/24 03:45 Atorvastatin Calcium 40 mg HS PO 11/20/24 22:00 11/21/24 21:10 40 MG Latanoprost 1 drop HS EACHEYE 11/20/24 22:00 11/21/24 21:28 1 DROP Insulin Glargine 20 units DAILY@1000 SC 11/21/24 10:00 11/22/24 09:29 20 UNITS Cefepime HCl 50 ml @ 12.5 mls/hr Q8HR IV 11/20/24 14:00 11/22/24 13:53 12.5 MLS/HR Sodium Chloride 1,000 ml @ 75 mls/hr [id number] IV 11/20/24 10:45 11/22/24 05:32 75 MLS/HR Vancomycin HCl 250 ml @ 200 mls/hr Q8H IV 11/21/24 13:00 UNV Examination Patient lying in bed, in no acute distress General: afebrile, mucosae are moist Cardiovascular: Normal S1 and S2. No murmurs, gallops or rubs Respiratory: Normal ventilation mechanics. Clear lung sounds on auscultation Abdomen: Soft, nontender, no organomegaly, normal bowel sounds MSK/skin: Mobilizes 4 limbs. Presents supramalleolar amputation which is open, borders erythematous, no purulent discharge/bleeding to seen. Rest of skin is dry and warm Neurological: Oriented in 3 spheres. No motor no sensitive deficits. Pupils are isocoric and reactive laboratory and microbiology Laboratory Tests 11/22/24 06:37 Test 11/22/24 06:37 Range/Units Serum Glucose 156 H 74-106 mg/dL Microbiology Date/Time Source Procedure Growth Status 11/20/24 09:56 Leg Left Gram Stain - Final Resulted 11/20/24 09:56 Leg Left Anaerobic Culture - Preliminary Resulted 11/20/24 09:56 Leg Left Aerobic Culture - Preliminary Resulted 11/19/24 21:44 Blood Blood Culture - Preliminary NO GROWTH AFTER 48 HOURS OF INCUBATION. 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 Osteomyelitis of 2nd metatarsal head and proximal phalangeal base with high likelihood of further extent within the forefoot, possibly midfoot and hindfoot. Extension infection within soft tissue proximal extent of acquired feel view. An abscess is partially imaged along the extensor tendon compartment. phone specialist was consulted: Completed szwtp-gwd-jnxu amputation, planning on secondary closure. He will re-evaluate for closing the stump in the following days. Patient required IV fluids and optimal in pain medication Patient currently on empiric IV antibiotic (cefepime and vancomycin, previously on clindamycin). Pending culture results (blood, urine and surgical). Wound culture left foot partial result shows-moderate white blood cells seen, moderate Gram-positive cocci in pairs, few Gram positive rods. Patient is currently on insulin sliding scale Goals of care discussed with patient for over 18 minutes: Full code status Cosigned by Dr Bailey PGY2, Resident Discussed plan with Dr. Luis Plan discussed with: Patient, Other (Nurses) Dietary Evaluation Review Comments: 1) Bipin 1 pk BID 2) Refer [employer] Merch[employer]iser Lead for diabetes education Expected Outcomes/Goals: Wound to improve Fu 3-5 days Date of Service: Nov 22, 2024 Billing Provider: JEVON LUIS MD Common Visit Codes: [id number] INP/OBS CARE(HIGH) EVE JACOBSEN RESIDENT Nov 22, 2024 19:32 GODFREY PONCE RESIDENT Nov 23, 2024 07:57 JEVON LUIS MD Dec 01, 2024 20:59
[2024-11-22] MEDS ORDERED: DEXTROSE (50%) 50ML SYRG IV PRN (22:15)
[2024-11-22] MEDS: InsuLIN REG 1unit/0.01ml Soln (100units/ml) SC SCH (22:34)
[2024-11-22] MEDS: ACCU-CHEK COMFORT CURVE STRIP VI SCH (22:41)
[2024-11-23 01:00] VITALS: BP 157/87; PULSE 70; RESP 18; TEMP 98.4; O2SAT 98
[2024-11-23 05:00] VITALS: BP 144/76; PULSE 68; RESP 19; TEMP 98.3; O2SAT 98
[2024-11-23 06:57] LABS: Hematocrit 34.2 % (41.0-53.0); Hemoglobin 11.4 g/dL (13.5-17.5); Mean Corpuscular Hemoglobin 28.2 pg (28.0-32.0); Mean Corpuscular Volume 84.6 fL (80.0-100.0); Nucleated Red Blood Cells % 0.0 %
[2024-11-23] MEDS ORDERED: INSULIN LISPRO (HUMAN) 100 UNITS/ML ML SC SCH ×2 (07:00→23:45)
[2024-11-23 07:12] LABS: Chloride 106 mmol/L (98-107); Potassium 3.8 mmol/L (3.5-5.1); Sodium 139 mmol/L (136-145)
[2024-11-23 07:13] LABS: Anion Gap 9 (5-15); Calcium 8.0 mg/dL (8.7-10.4); Carbon Dioxide 24 mmol/L (20-31)
[2024-11-23 07:18] LABS: BUN/Creatinine Ratio 10.9 (10.0-20.0)
[2024-11-23 07:19] LABS: Magnesium 2.0 mg/dL (1.6-2.6)
[2024-11-23 07:20] LABS: Blood Urea Nitrogen 7 mg/dL (9-23); Glucose 138 mg/dL (74-106)
--- NOTE | 2024-11-23 08:28 | DVH ---
EXAM: XY CHEST XRAY 1 VIEW Indication: chest pain Technique: Single frontal view of the chest was obtained Comparison: None FINDINGS: Lines and Tubes: None Lungs: No focal consolidation. Pleura: No effusion. No pneumothorax. Cardiomediastinal contours: Unremarkable. Atherosclerotic vascular calcifications of the thoracic ao rta are noted. Bones: No acute osseous abnormality. IMPRESSION: No acute cardiopulmonary disease.
[2024-11-23 08:30] VITALS: BP 155/83; PULSE 65; RESP 17; TEMP 97.1; O2SAT 98
[2024-11-23] MEDS: INSULIN LANTUS (GLARGINE) 1 /0.01ml (100units/ml) SC SCH (09:48)
[2024-11-23] MEDS: LOSARTAN POTASSIUM 50 MG TAB PO SCH (12:20)
[2024-11-23] MEDS: INSULIN LISPRO (HUMAN) 100 UNITS/ML ML SC SCH ×2 (12:24→23:50)
[2024-11-23 12:30] VITALS: BP 160/88; PULSE 78; RESP 17; TEMP 97.6; O2SAT 99
[2024-11-23] MEDS: VANCOMYCIN 1GM/250ML KIT 250 ML IV SCH (13:12)
[2024-11-23 16:58] VITALS: BP 157/82; PULSE 66; RESP 18; TEMP 98.1; O2SAT 99
--- NOTE | 2024-11-23 20:42 | DVHPNRES ---
Progress Note Date Seen: Nov 23, 2024 Resident Creating Document: EVE JACOBSEN RESIDENT Medical Necessity Reason Pt with a Central, PICC or Fol: No Subjective Review of Systems Zachary Raman is a 59-year-old male who presented to the emergency department with worsening pain, swelling, and foul-smelling drainage from a chronic diabetic ulcer on the dorsum of his left foot. The ulcer has been present for approximately one year, but symptoms have significantly worsened over the past four days. He reports severe pain rated 10/10, radiating to the ankle aggravated by walking and relieved by rest. Denies fever, chills, dyspnea, chest pain, unintentional weight loss, bleeding and motor or sensory deficits. Past medical history: Dyslipidemia, diabetes mellitus, diabetic foot, glaucoma, vitamin-D deficiency Surgical history: Denies Family history: Noncontributory Social history: Lives in [place] with family. Current smoker (approximately 10 pack-year history of smoking). Denies current alcohol and other drug abuse. Allergies: Denies Home medication: Atorvastatin 20 mg p.o. daily, vitamin-D, latanoprost, metformin 1000 mg p.o. b.i.d. Patient seen today in bedside. Surgical site looks healthy and no discharge or bleeding noted. s/p L BKA guillotine amputation Surgical site covered with gauze. Case discussed with Dr. Mimi Barrett over the phone, if the patient amputation site clinically improved and no active infection, will proceed for closer surgical site. Lab ordered and keep patient NPO from midnight. Called number on the chart but patient received reported the same number he is using. Objective vital signs Vital Sign Date Time Temp Pulse Resp B/P (MAP) Pulse Ox O2 Delivery O2 Flow Rate FiO2 11/23/24 16:58 98.1 66 18 157/82 (107) 99 98.1 11/23/24 08:00 Room Air* 0 21 Total Intake and Output 11/22/24 11/22/24 11/23/24 15:00 23:00 07:00 Intake Total 1090 ml 450 ml Output Total 900 ml 1700 ml Balance 190 ml -1250 ml medications Current Medications Medications Dose Ordered Sig/Ralph Route Start Time Stop Time Status Last Admin Dose Admin Acetaminophen 325 mg Q4HP PRN PO 11/20/24 01:00 Ondansetron HCl 4 mg Q4HP PRN IV 11/20/24 01:00 Morphine Sulfate 2 mg Q4HPRN PRN IV 11/20/24 01:00 Vancomycin HCl 0 ml @ 0 mls/hr UD IV 11/20/24 01:00 Atorvastatin Calcium 40 mg HS PO 11/20/24 22:00 11/22/24 22:33 40 MG Latanoprost 1 drop HS EACHEYE 11/20/24 22:00 11/22/24 22:33 1 DROP Cefepime HCl 50 ml @ 12.5 mls/hr Q8HR IV 11/20/24 14:00 11/23/24 15:06 12.5 MLS/HR Sodium Chloride 1,000 ml @ 75 mls/hr [id number] IV 11/20/24 10:45 11/22/24 05:32 75 MLS/HR Vancomycin HCl 250 ml @ 200 mls/hr Q8H IV 11/21/24 13:00 UNV Insulin Glargine 25 units DAILY@1000 SC 11/23/24 10:00 11/23/24 09:48 25 UNITS Diagnostic Test (Pha) 1 strip ACHS 11/22/24 22:30 11/23/24 18:12 1 STRIP Dextrose 50 ml UD PRN IV 11/22/24 22:15 Losartan Potassium 50 mg DAILY PO 11/23/24 11:15 11/23/24 12:20 50 MG Insulin Human Lispro AC SC 11/23/24 11:30 11/23/24 18:11 3 UNITS Vancomycin HCl 250 ml @ 250 mls/hr Q8H IV 11/23/24 13:00 11/23/24 13:12 250 MLS/HR Examination Patient lying in bed, in no acute distress General: afebrile, mucosae are moist Cardiovascular: Normal S1 and S2. No murmurs, gallops or rubs Respiratory: Normal ventilation mechanics. Clear lung sounds on auscultation Abdomen: Soft, nontender, no organomegaly, normal bowel sounds MSK/skin: Mobilizes 4 limbs. Presents supramalleolar amputation which is open, no purulent discharge/bleeding to seen. Surgical site covered with gauze. Rest of skin is dry and warm. Neurological: Oriented in 3 spheres. No motor no sensitive deficits. Pupils are reactive laboratory and microbiology Laboratory Tests 11/23/24 05:58 Test 11/23/24 05:58 Range/Units Serum Glucose 138 H 74-106 mg/dL Microbiology Date/Time Source Procedure Growth Status 11/20/24 09:56 Leg Left Gram Stain - Final Resulted 11/20/24 09:56 Leg Left Anaerobic Culture - Preliminary Resulted 11/20/24 09:56 Aerobic Culture - Final Enterobacter cloacae Streptococcus Group B Resulted 11/19/24 21:44 Blood Blood Culture - Preliminary NO GROWTH AFTER 72 HOURS OF INCUBATION. 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 Osteomyelitis of 2nd metatarsal head and proximal phalangeal base with high likelihood of further extent within the forefoot, possibly midfoot and hindfoot. Extension infection within soft tissue proximal extent of acquired feel view. An abscess is partially imaged along the extensor tendon compartment. PLAN discussed case with Dr. Le, if the patient amputation site clinically improved and no active infection, will proceed for closer surgical site. lab ordered and keep patient NPO from midnight for possible closure morphine 2 mg IV q.4 p.r.n. for severe pain acetaminophen 3225 mg p.o. q.4 p.r.n. for mild pain atorvastatin 40 mg p.o. q.h.s. insulin glargine 25 units bedtime insulin lispro latanoprost eye drops both eyes daily started losartan 50 mg p.o. daily ondansetron 4 mg IV q.4 p.r.n. Patient required IV fluids and optimal in pain medication Patient currently on empiric IV antibiotic (cefepime and vancomycin, previously on clindamycin). Pending culture results (blood, urine and surgical). Wound culture left foot partial result shows-moderate white blood cells seen, moderate Gram-positive cocci in pairs, few Gram positive rods. Goals of care discussed with patient for over 21 minutes: Full code status Cosigned by Dr Bailey PGY2, resident Discussed plan with Dr. Luis Plan discussed with: Patient, Other (Nurse) My Orders My Orders Orders - EVE JACOBSEN RESIDENT Procedure Category Date Status Time Npo (Nothing By DIET 11/24/24 Transmitted Mouth) Diet Breakfast Basic Metabolic Panel LAB 11/24/24 Verified 04:00 Complete Blood Count LAB 11/24/24 Verified 04:00 Dietary Evaluation Review Comments: 1) Bipin 1 pk BID 2) Refer [employer] Tutor for diabetes education Expected Outcomes/Goals: Wound to improve Fu 3-5 days Date of Service: Nov 23, 2024 Billing Provider: JEVON LUIS MD Common Visit Codes: [id number] INP/OBS CARE(HIGH) EVE JACOBSEN RESIDENT Nov 23, 2024 20:42 GODFREY PONCE RESIDENT Nov 23, 2024 23:15 KAVIN TAPIA RESIDENT Nov 24, 2024 21:48 JEVON LUIS MD Dec 01, 2024 21:03
[2024-11-23 21:00] VITALS: BP 147/73; PULSE 71; RESP 19; TEMP 98.3; O2SAT 99
[2024-11-23] MEDS ORDERED: DEXTROSE (50%) 50ML SYRG IV PRN ×2 (23:30→23:50)
[2024-11-23] MEDS ORDERED: ACCU-CHEK COMFORT CURVE STRIP VI SCH (23:45)
[2024-11-23] MEDS ORDERED: InsuLIN REG 1unit/0.01ml Soln (100units/ml) SC SCH (23:45)
[2024-11-23] MEDS: ACCU-CHEK COMFORT CURVE STRIP VI SCH (23:57)
[2024-11-24] VITALS (7 sets, daily range): BP systolic 131–157; BP diastolic 77–90; PULSE 75–95; RESP 18–20; TEMP 97.5–98.7; O2SAT 97–99
[2024-11-24] MEDS ORDERED: InsuLIN REG 1unit/0.01ml Soln (100units/ml) SC SCH (07:00)
[2024-11-24 08:08] LABS: Mean Corpuscular Hemoglobin 28.6 pg (28.0-32.0); Nucleated Red Blood Cells % 0.0 %
[2024-11-24 08:12] LABS: Hematocrit 37.5 % (41.0-53.0); Mean Corpuscular Volume 83.9 fL (80.0-100.0)
[2024-11-24 08:14] LABS: Chloride 102 mmol/L (98-107); Potassium 4.4 mmol/L (3.5-5.1)
[2024-11-24 08:15] LABS: Anion Gap 6 (5-15); Carbon Dioxide 28 mmol/L (20-31)
[2024-11-24 08:16] LABS: Hemoglobin 12.7 g/dL (13.5-17.5)
[2024-11-24 08:18] LABS: Calcium 8.5 mg/dL (8.7-10.4); Sodium 136 mmol/L (136-145)
[2024-11-24 08:20] LABS: BUN/Creatinine Ratio 14.5 (10.0-20.0); Blood Urea Nitrogen 12 mg/dL (9-23)
[2024-11-24 08:30] LABS: Glucose 220 mg/dL (74-106)
[2024-11-24] MEDS: INSULIN LANTUS (GLARGINE) 1 /0.01ml (100units/ml) SC SCH (11:37)
--- NOTE | 2024-11-24 14:30 | DVHPN2 ---
Progress Note - Dictate Date Seen: Nov 24, 2024 Medical Necessity Reason Pt with a Central, PICC or Fol: No Subjective E: no major events o/n. no complaints. vital signs Vital Sign Date Time Temp Pulse Resp B/P (MAP) Pulse Ox O2 Delivery O2 Flow Rate FiO2 11/24/24 13:00 98.2 75 18 139/80 (99) 99 98.2 11/24/24 08:00 Room Air* 0 21 Total Intake and Output 11/23/24 11/23/24 11/24/24 15:00 23:00 07:00 Intake Total 874 ml 300 ml Output Total 850 ml 900 ml Balance 24 ml -600 ml medications Current Medications Medications Dose Ordered Sig/Ralph Route Start Time Stop Time Status Last Admin Dose Admin Acetaminophen 325 mg Q4HP PRN PO 11/20/24 01:00 Ondansetron HCl 4 mg Q4HP PRN IV 11/20/24 01:00 Morphine Sulfate 2 mg Q4HPRN PRN IV 11/20/24 01:00 Vancomycin HCl 0 ml @ 0 mls/hr UD IV 11/20/24 01:00 Atorvastatin Calcium 40 mg HS PO 11/20/24 22:00 11/23/24 23:52 40 MG Latanoprost 1 drop HS EACHEYE 11/20/24 22:00 11/23/24 23:52 1 DROP Cefepime HCl 50 ml @ 12.5 mls/hr Q8HR IV 11/20/24 14:00 11/24/24 06:13 12.5 MLS/HR Sodium Chloride 1,000 ml @ 75 mls/hr [id number] IV 11/20/24 10:45 11/24/24 09:46 75 MLS/HR Vancomycin HCl 250 ml @ 200 mls/hr Q8H IV 11/21/24 13:00 UNV Losartan Potassium 50 mg DAILY PO 11/23/24 11:15 11/24/24 09:47 50 MG Vancomycin HCl 250 ml @ 250 mls/hr Q8H IV 11/23/24 13:00 11/24/24 13:10 250 MLS/HR Diagnostic Test (Pha) 1 strip ACHS 11/23/24 23:50 11/24/24 11:38 1 STRIP Dextrose 50 ml UD PRN IV 11/23/24 23:50 Insulin Human Lispro ACHS SC 11/23/24 23:50 11/24/24 11:37 1 UNITS Insulin Glargine 30 units DAILY@1000 VA 11/24/24 10:00 11/24/24 11:37 30 UNITS objective GEN: NAD LLE: improving erythema. min serosang purulent drainge from stump. laboratory and microbiology Laboratory Tests 11/24/24 06:56 Test 11/24/24 06:56 Range/Units Serum Glucose 220 H 74-106 mg/dL Assessment/Plan A: 1. s/p L BKA guillotine amputation POD #4 P: 1. stump is improving but not quite ready for closure. 2. plan on surgery prob on Mon. Dietary Evaluation Review Comments: 1) Bipin 1 pk BID 2) Refer Buck Presser for diabetes education Expected Outcomes/Goals: Wound to improve Fu 3-5 days Plan discussed with: Patient ADIEL HERNANDES MD Nov 24, 2024 14:30
--- NOTE | 2024-11-24 19:55 | DVHPNRES ---
Progress Note Date Seen: Nov 24, 2024 Resident Creating Document: EVE JACOBSEN RESIDENT Has the PT tested + for MRSA If YES, has PT been informed?: Yes Medical Necessity Reason Pt with a Central, PICC or Fol: No Subjective Review of Systems Zachary Raman is a 59-year-old male who presented to the emergency department with worsening pain, swelling, and foul-smelling drainage from a chronic diabetic ulcer on the dorsum of his left foot. The ulcer has been present for approximately one year, but symptoms have significantly worsened over the past four days. He reports severe pain rated 10/10, radiating to the ankle aggravated by walking and relieved by rest. Denies fever, chills, dyspnea, chest pain, unintentional weight loss, bleeding and motor or sensory deficits. Past medical history: Dyslipidemia, diabetes mellitus, diabetic foot, glaucoma, vitamin-D deficiency Surgical history: Denies Family history: Noncontributory Social history: Lives in [place] with family. Current smoker (approximately 10 pack-year history of smoking). Denies current alcohol and other drug abuse. Allergies: Denies Home medication: Atorvastatin 20 mg p.o. daily, vitamin-D, latanoprost, metformin 1000 mg p.o. b.i.d. Patient seen today in bedside. Erythema on the surgical site is improved in compared to last few days, no edema, no discharge or bleeding noted. s/p L BKA guillotine amputation, POD #4 Surgical site covered with gauze. Surgery consult appreciated and planning for closure of the wound site on Wednesday. on bedside and explained the plan, verbalized understanding multiple discussed. Objective vital signs Vital Sign Date Time Temp Pulse Resp B/P (MAP) Pulse Ox O2 Delivery O2 Flow Rate FiO2 11/24/24 17:00 98.4 78 18 144/86 (105) 98 98.4 11/24/24 08:00 Room Air* 0 21 Total Intake and Output 11/23/24 11/23/24 11/24/24 15:00 23:00 07:00 Intake Total 874 ml 300 ml Output Total 850 ml 900 ml Balance 24 ml -600 ml medications Current Medications Medications Dose Ordered Sig/Ralph Route Start Time Stop Time Status Last Admin Dose Admin Acetaminophen 325 mg Q4HP PRN PO 11/20/24 01:00 Ondansetron HCl 4 mg Q4HP PRN IV 11/20/24 01:00 Morphine Sulfate 2 mg Q4HPRN PRN IV 11/20/24 01:00 Vancomycin HCl 0 ml @ 0 mls/hr UD IV 11/20/24 01:00 Atorvastatin Calcium 40 mg HS PO 11/20/24 22:00 11/23/24 23:52 40 MG Latanoprost 1 drop HS EACHEYE 11/20/24 22:00 11/23/24 23:52 1 DROP Cefepime HCl 50 ml @ 12.5 mls/hr Q8HR IV 11/20/24 14:00 11/24/24 18:22 12.5 MLS/HR Sodium Chloride 1,000 ml @ 75 mls/hr [id number] IV 11/20/24 10:45 11/24/24 09:46 75 MLS/HR Vancomycin HCl 250 ml @ 200 mls/hr Q8H IV 11/21/24 13:00 UNV Losartan Potassium 50 mg DAILY PO 11/23/24 11:15 11/24/24 09:47 50 MG Vancomycin HCl 250 ml @ 250 mls/hr Q8H IV 11/23/24 13:00 11/24/24 13:10 250 MLS/HR Diagnostic Test (Pha) 1 strip ACHS 11/23/24 23:50 11/24/24 17:00 1 STRIP Dextrose 50 ml UD PRN IV 11/23/24 23:50 Insulin Human Lispro ACHS SC 11/23/24 23:50 11/24/24 17:42 2 UNITS Insulin Glargine 30 units DAILY@1000 SC 11/24/24 10:00 11/24/24 11:37 30 UNITS Examination Patient lying in bed, in no acute distress General: afebrile, mucosae are moist Cardiovascular: Normal S1 and S2. No murmurs, gallops or rubs Respiratory: Normal ventilation mechanics. Clear lung sounds on auscultation Abdomen: Soft, nontender, no organomegaly, normal bowel sounds MSK/skin: Mobilizes 4 limbs. Presents supramalleolar amputation which is open, no purulent discharge/bleeding to seen. Surgical site no edema, erythema, discharge or bleeding noted. Neurological: Oriented in 3 spheres. No motor no sensitive deficits. Pupils are reactive laboratory and microbiology Laboratory Tests 11/24/24 06:56 Test 11/24/24 06:56 Range/Units Serum Glucose 220 H 74-106 mg/dL Microbiology Date/Time Source Procedure Growth Status 11/20/24 09:56 Leg Left Gram Stain - Final Resulted 11/20/24 09:56 Anaerobic Culture - Preliminary Prevotella loescheii Resulted 11/20/24 09:56 Aerobic Culture - Final Enterobacter cloacae Streptococcus Group B Resulted 11/19/24 21:44 Blood Blood Culture - Preliminary NO GROWTH AFTER 72 HOURS OF INCUBATION. 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 Osteomyelitis of 2nd metatarsal head and proximal phalangeal base with high likelihood of further extent within the forefoot, possibly midfoot and hindfoot. Extension infection within soft tissue proximal extent of acquired feel view. An abscess is partially imaged along the extensor tendon compartment. PLAN Keep the patient isolated due to on growth shows MRSA positive. Postoperative day #4 Status post BKA guillotine amputation, plan on surgery prove on Wednesday. morphine 2 mg IV q.4 p.r.n. for severe pain acetaminophen 325 mg p.o. q.4 p.r.n. for mild pain atorvastatin 40 mg p.o. q.h.s. insulin glargine 25 units bedtime insulin lispro latanoprost eye drops both eyes daily Continue losartan 50 mg p.o. daily ondansetron 4 mg IV q.4 p.r.n. Patient currently on empiric IV antibiotic (cefepime and vancomycin, previously on clindamycin). Pending culture results (blood, urine and surgical). Wound culture left foot partial result shows-moderate white blood cells seen, moderate Gram-positive cocci in pairs, few Gram positive rods. Goals of care discussed with patient for over 25 minutes. Full code statuS. Discussed plan with Dr. Luis Plan discussed with: Patient, Other (Nurse, ) My Orders My Orders Orders - EVE JACOBSEN Procedure Category Date Status Time Consistent DIET 11/24/24 [facility]Diabetes Dinner Dietary Evaluation Review Comments: 1) Bipin 1 pk BID 2) Refer Staff Educator for diabetes education Expected Outcomes/Goals: Wound to improve Fu 3-5 days Date of Service: Nov 24, 2024 Billing Provider: JEVON LUIS MD Common Visit Codes: [id number] INP/OBS CARE(HIGH) EVE JACOBSEN RESIDENT Nov 24, 2024 19:55 KAVIN TAPIA RESIDENT Nov 24, 2024 21:51 GODFREY PONCE RESIDENT Nov 27, 2024 06:28 JEVON LUIS MD Dec 01, 2024 21:26
[2024-11-25] VITALS (7 sets, daily range): BP systolic 129–149; BP diastolic 81–86; PULSE 74–81; RESP 14–18; TEMP 97.1–99.4; O2SAT 98–99
[2024-11-25 07:43] LABS: Hematocrit 38.9 % (41.0-53.0); Hemoglobin 13.0 g/dL (13.5-17.5); Mean Corpuscular Hemoglobin 28.5 pg (28.0-32.0); Mean Corpuscular Volume 85.6 fL (80.0-100.0); Nucleated Red Blood Cells % 0.1 %
[2024-11-25 07:55] LABS: Anion Gap 6 (5-15); Carbon Dioxide 26 mmol/L (20-31); Chloride 103 mmol/L (98-107); Potassium 4.1 mmol/L (3.5-5.1)
[2024-11-25 07:59] LABS: Calcium 8.6 mg/dL (8.7-10.4); Sodium 135 mmol/L (136-145)
[2024-11-25 08:01] LABS: BUN/Creatinine Ratio 13.5 (10.0-20.0); Blood Urea Nitrogen 10 mg/dL (9-23)
[2024-11-25 08:06] LABS: Glucose 215 mg/dL (74-106)
--- NOTE | 2024-11-25 10:54 | DVHPN2 ---
Progress Note - Dictate Date Seen: Nov 25, 2024 Has the PT tested + for MRSA If YES, has PT been informed?: Yes Medical Necessity Reason Pt with a Central, PICC or Fol: No Subjective E: no major events o/n. no complaints. vital signs Vital Sign Date Time Temp Pulse Resp B/P (MAP) Pulse Ox O2 Delivery O2 Flow Rate FiO2 11/25/24 10:32 129/81 11/25/24 09:27 97.1 74 14 99 97.1 11/24/24 20:00 Room Air* 0 21 Total Intake and Output 11/24/24 11/24/24 11/25/24 15:00 23:00 07:00 Intake Total 300 ml 1360 ml 600 ml Output Total 750 ml 800 ml 1750 ml Balance -450 ml 560 ml -1150 ml medications Current Medications Medications Dose Ordered Sig/Ralph Route Start Time Stop Time Status Last Admin Dose Admin Acetaminophen 325 mg Q4HP PRN PO 11/20/24 01:00 Ondansetron HCl 4 mg Q4HP PRN IV 11/20/24 01:00 Morphine Sulfate 2 mg Q4HPRN PRN IV 11/20/24 01:00 Vancomycin HCl 0 ml @ 0 mls/hr UD IV 11/20/24 01:00 Atorvastatin Calcium 40 mg HS PO 11/20/24 22:00 11/24/24 22:51 40 MG Latanoprost 1 drop HS EACHEYE 11/20/24 22:00 11/24/24 22:51 1 DROP Sodium Chloride 1,000 ml @ 75 mls/hr [id number] IV 11/20/24 10:45 11/24/24 22:59 75 MLS/HR Vancomycin HCl 250 ml @ 200 mls/hr Q8H IV 11/21/24 13:00 UNV Losartan Potassium 50 mg DAILY PO 11/23/24 11:15 11/25/24 10:32 50 MG Vancomycin HCl 250 ml @ 250 mls/hr Q8H IV 11/23/24 13:00 11/25/24 05:32 250 MLS/HR Diagnostic Test (Pha) 1 strip ACHS 11/23/24 23:50 11/25/24 06:40 1 STRIP Dextrose 50 ml UD PRN IV 11/23/24 23:50 Insulin Human Lispro ACHS SC 11/23/24 23:50 11/25/24 06:40 2 UNITS Insulin Glargine 30 units DAILY@1000 SC 11/24/24 10:00 11/24/24 11:37 30 UNITS Levofloxacin/ Dextrose 100 ml @ 100 mls/hr DAILY IV 11/25/24 10:00 11/25/24 10:31 100 MLS/HR objective GEN: NAD LLE: improving erythema. min serosang drainage from stump. decreasing soft tissue edema. laboratory and microbiology Laboratory Tests 11/25/24 06:45 Test 11/25/24 06:45 Range/Units Serum Glucose 215 H 74-106 mg/dL Assessment/Plan A: 1. s/p L BKA guillotine amputation POD #5 P: 1. stump is improving 2. closure on mon. Dietary Evaluation Review Comments: 1) Bipin 1 pk BID 2) Refer [employer] Worker for diabetes education Expected Outcomes/Goals: Wound to improve Fu 3-5 days Plan discussed with: Patient ADIEL HERNANDES MD Nov 25, 2024 10:54
--- NOTE | 2024-11-25 19:35 | DVHPNRES ---
Progress Note Date Seen: Nov 25, 2024 Resident Creating Document: GODFREY GODINEZ RESIDENT Has the PT tested + for MRSA If YES, has PT been informed?: Yes Medical Necessity Reason Pt with a Central, PICC or Fol: No Subjective Review of Systems Zachary Raman is a 59-year-old male who presented to the emergency department with worsening pain, swelling, and foul-smelling drainage from a chronic diabetic ulcer on the dorsum of his left foot. The ulcer has been present for approximately one year, but symptoms have significantly worsened over the past four days. He reports severe pain rated 10/10, radiating to the ankle aggravated by walking and relieved by rest. Denies fever, chills, dyspnea, chest pain, unintentional weight loss, bleeding and motor or sensory deficits. Past medical history: Dyslipidemia, diabetes mellitus, diabetic foot, glaucoma, vitamin-D deficiency Surgical history: Denies Family history: Noncontributory Social history: Lives in [place] with family. Current smoker (approximately 10 pack-year history of smoking). Denies current alcohol and other drug abuse. Allergies: Denies Home medication: Atorvastatin 20 mg p.o. daily, vitamin-D, latanoprost, metformin 1000 mg p.o. b.i.d. s/p L BKA guillotine amputation, POD #5 Patient was seen and examined todayat bedside. Erythema on the surgical site is improved no edema, no discharge or bleeding noted. Objective vital signs Vital Sign Date Time Temp Pulse Resp B/P (MAP) Pulse Ox O2 Delivery O2 Flow Rate FiO2 11/25/24 17:00 97.9 74 16 149/86 (107) 99 97.9 11/25/24 08:00 Room Air* 0 21 Total Intake and Output 11/24/24 11/24/24 11/25/24 15:00 23:00 07:00 Intake Total 300 ml 1360 ml 600 ml Output Total 750 ml 800 ml 1750 ml Balance -450 ml 560 ml -1150 ml medications Current Medications Medications Dose Ordered Sig/Ralph Route Start Time Stop Time Status Last Admin Dose Admin Acetaminophen 325 mg Q4HP PRN PO 11/20/24 01:00 Ondansetron HCl 4 mg Q4HP PRN IV 11/20/24 01:00 Morphine Sulfate 2 mg Q4HPRN PRN IV 11/20/24 01:00 Vancomycin HCl 0 ml @ 0 mls/hr UD IV 11/20/24 01:00 Atorvastatin Calcium 40 mg HS PO 11/20/24 22:00 11/24/24 22:51 40 MG Latanoprost 1 drop HS EACHEYE 11/20/24 22:00 11/24/24 22:51 1 DROP Sodium Chloride 1,000 ml @ 75 mls/hr [id number] IV 11/20/24 10:45 11/24/24 22:59 75 MLS/HR Vancomycin HCl 250 ml @ 200 mls/hr Q8H IV 11/21/24 13:00 UNV Losartan Potassium 50 mg DAILY PO 11/23/24 11:15 11/25/24 10:32 50 MG Vancomycin HCl 250 ml @ 250 mls/hr Q8H IV 11/23/24 13:00 11/25/24 14:10 250 MLS/HR Diagnostic Test (Pha) 1 strip ACHS 11/23/24 23:50 11/25/24 17:00 1 STRIP Dextrose 50 ml UD PRN IV 11/23/24 23:50 Insulin Human Lispro ACHS SC 11/23/24 23:50 11/25/24 17:46 3 UNITS Insulin Glargine 30 units DAILY@1000 SC 11/24/24 10:00 11/25/24 11:36 30 UNITS Levofloxacin/ Dextrose 100 ml @ 100 mls/hr DAILY IV 11/25/24 10:00 11/25/24 10:31 100 MLS/HR Examination Patient lying in bed, in no acute distress General: afebrile, mucosae are moist Cardiovascular: Normal S1 and S2. No murmurs, gallops or rubs Respiratory: Normal ventilation mechanics. Clear lung sounds on auscultation Abdomen: Soft, nontender, no organomegaly, normal bowel sounds MSK/skin: Mobilizes 4 limbs. Presents supramalleolar amputation which is open, no purulent discharge/bleeding to seen. Surgical site no edema, erythema, discharge or bleeding noted. Neurological: Oriented in 3 spheres. No motor no sensitive deficits. Pupils are reactive laboratory and microbiology Laboratory Tests 11/25/24 06:45 Test 11/25/24 06:45 Range/Units Serum Glucose 215 H 74-106 mg/dL Microbiology Date/Time Source Procedure Growth Status 11/20/24 09:56 Leg Left Gram Stain - Final Resulted 11/20/24 09:56 Anaerobic Culture - Preliminary Prevotella loescheii Resulted 11/20/24 09:56 Aerobic Culture - Final Enterobacter cloacae Streptococcus Group B Resulted 11/19/24 21:44 Blood Blood Culture - Final NO GROWTH AFTER 5 DAYS OF INCUBATION. 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 stump is improving closure on wednesday morphine 2 mg IV q.4 p.r.n. for severe pain acetaminophen 325 mg p.o. q.4 p.r.n. for mild pain ondansetron 4 mg IV q.4 p.r.n. Patient currently on empiric IV antibiotic (cefepime and vancomycin, previously on clindamycin). Pending culture results (blood, urine and surgical). Wound culture left foot partial result shows-moderate white blood cells seen, moderate Gram-positive cocci in pairs, few Gram positive rods. Image: left foot CT: Large plantar ulcer underlying the 2nd metatarsal head. Osteomyelitis of 2nd metatarsal head and proximal phalangeal base with high likelihood of further extent within the forefoot, possibly midfoot and hindfoot. Extension infection within soft tissue proximal extent of acquired feel view. An abscess is partially imaged along the extensor tendon compartment. Diabetes mellitus with hyperglycemia Diabetes-uncontrolled (hemoglobin A1c 9.5%) insulin glargine 25 units bedtime insulin lispro Reactive thrombocytosis Vitamin D deficiency Anemia of chronic disease Monitor labs Hypertension Continue losartan 50 mg p.o. daily MRSA positive Keep the patient isolated due to on growth shows MRSA positive. Dyslipidemia atorvastatin 40 mg p.o. q.h.s. Glaucoma latanoprost eye drops both eyes daily Goals of care discussed with patient for over 25 minutes. Full code status. Discussed plan with Dr. Luis Plan discussed with: Patient, Other (Nurse, ) Plan discussed with: Patient, Other (RN) Dietary Evaluation Review Comments: 1) Bipin 1 pk BID 2) Refer Ct[employer] Operator for diabetes education Expected Outcomes/Goals: Wound to improve Fu 3-5 days Date of Service: Nov 25, 2024 Billing Provider: JEVON LUIS MD Common Visit Codes: [id number] INP/OBS CARE(HIGH) GODFREY GODINEZ RESIDENT Nov 25, 2024 19:35 GODFREY PONCE RESIDENT Nov 27, 2024 06:27 JEVON LUIS MD Dec 01, 2024 22:00
[2024-11-26] VITALS (8 sets, daily range): BP systolic 113–152; BP diastolic 67–87; PULSE 56–82; RESP 14–20; TEMP 96.6–98.3; O2SAT 94–100
[2024-11-26 07:25] LABS: Hematocrit 37.2 % (41.0-53.0); Hemoglobin 12.6 g/dL (13.5-17.5); Mean Corpuscular Hemoglobin 28.3 pg (28.0-32.0); Mean Corpuscular Volume 83.9 fL (80.0-100.0); Nucleated Red Blood Cells % 0.0 %
--- NOTE | 2024-11-26 19:01 | DVHPNRES ---
Progress Note Date Seen: Nov 26, 2024 Resident Creating Document: EVE JACOBSEN RESIDENT Has the PT tested + for MRSA If YES, has PT been informed?: Yes Medical Necessity Reason Pt with a Central, PICC or Fol: No Subjective Review of Systems Zachary Raman is a 59-year-old male who presented to the emergency department with worsening pain, swelling, and foul-smelling drainage from a chronic diabetic ulcer on the dorsum of his left foot. The ulcer has been present for approximately one year, but symptoms have significantly worsened over the past four days. He reports severe pain rated 10/10, radiating to the ankle aggravated by walking and relieved by rest. Denies fever, chills, dyspnea, chest pain, unintentional weight loss, bleeding and motor or sensory deficits. Past medical history: Dyslipidemia, diabetes mellitus, diabetic foot, glaucoma, vitamin-D deficiency Surgical history: Denies Family history: Noncontributory Social history: Lives in [place] with family. Current smoker (approximately 10 pack-year history of smoking). Denies current alcohol and other drug abuse. Allergies: Denies Home medication: Atorvastatin 20 mg p.o. daily, vitamin-D, latanoprost, metformin 1000 mg p.o. b.i.d. s/p L BKA guillotine amputation, POD #6 Plan for closure surgical site s/p BKA, we will schedule for tomorrow. Lab shows WBC trending down. Plan discussed with patient and patient agree with current management. No Erythema on the surgical site is improved no edema, no discharge or bleeding noted. Amputating stump covered with dry gauze piece. Objective vital signs Vital Sign Date Time Temp Pulse Resp B/P (MAP) Pulse Ox O2 Delivery O2 Flow Rate FiO2 11/26/24 17:00 98.1 80 20 152/85 (107) 99 98.1 11/26/24 08:00 Room Air* 0 21 Total Intake and Output 11/25/24 11/25/24 11/26/24 15:00 23:00 07:00 Intake Total 1250 ml 2675 ml 970 ml Output Total 3070 ml Balance 1250 ml 2675 ml -2100 ml medications Current Medications Medications Dose Ordered Sig/Ralph Route Start Time Stop Time Status Last Admin Dose Admin Acetaminophen 325 mg Q4HP PRN PO 11/20/24 01:00 Ondansetron HCl 4 mg Q4HP PRN IV 11/20/24 01:00 Morphine Sulfate 2 mg Q4HPRN PRN IV 11/20/24 01:00 Vancomycin HCl 0 ml @ 0 mls/hr UD IV 11/20/24 01:00 Atorvastatin Calcium 40 mg HS PO 11/20/24 22:00 11/25/24 21:56 40 MG Latanoprost 1 drop HS EACHEYE 11/20/24 22:00 11/25/24 21:56 1 DROP Sodium Chloride 1,000 ml @ 75 mls/hr [id number] IV 11/20/24 10:45 11/26/24 17:47 75 MLS/HR Vancomycin HCl 250 ml @ 200 mls/hr Q8H IV 11/21/24 13:00 UNV Losartan Potassium 50 mg DAILY PO 11/23/24 11:15 11/26/24 09:56 50 MG Diagnostic Test (Pha) 1 strip ACHS 11/23/24 23:50 11/26/24 17:48 1 STRIP Dextrose 50 ml UD PRN IV 11/23/24 23:50 Insulin Human Lispro ACHS SC 11/23/24 23:50 11/26/24 17:53 2 UNITS Insulin Glargine 30 units DAILY@1000 SC 11/24/24 10:00 11/26/24 09:59 30 UNITS Piperacillin Sod/ Tazobactam Sod 100 ml @ 25 mls/hr Q8HR IV 11/26/24 22:00 Vancomycin HCl 250 ml @ 200 mls/hr Q12H IV 11/27/24 01:00 Examination General: afebrile, mucosae are moist, Patient lying in bed, in no acute distress Cardiovascular: Normal S1 and S2. No murmurs, gallops or rubs Respiratory: Normal ventilation mechanics. Clear lung sounds on auscultation Abdomen: Soft, nontender, no organomegaly, normal bowel sounds MSK/skin: Mobilizes 4 limbs. Presents supramalleolar amputation which is open, no purulent discharge/bleeding to seen. Surgical site no edema, erythema, discharge or bleeding noted. Neurological: Oriented in 3 spheres. No motor no sensitive deficits. Pupils are reactive laboratory and microbiology Laboratory Tests 11/26/24 06:43 11/25/24 06:45 Test 11/25/24 06:45 Range/Units Serum Glucose 215 H 74-106 mg/dL Microbiology Date/Time Source Procedure Growth Status 11/20/24 09:56 Leg Left Gram Stain - Final Complete 11/20/24 09:56 Anaerobic Culture - Final Prevotella loescheii Complete 11/20/24 09:56 Aerobic Culture - Final Enterobacter cloacae Streptococcus Group B Complete 11/19/24 21:44 Blood Blood Culture - Final NO GROWTH AFTER 5 DAYS OF INCUBATION. Complete Problem List/Assessment/Plan Problem List/Assessment/Plan Assessment and plan #Left diabetic foot osteomyelitis (2nd metatarsal head and proximal phalanx) #Complicated by soft tissue abscess and extensive infection. #Status post supramalleolar amputation and hhoph-[id number]-[id number] guillotine amputation. pod #6 #Imaging confirms extensive osteomyelitis and abscess formation CT on 11/19/2024 #Diabetic wet gangrene of left foot Continue IV Zosyn and vancomycin MRSA coverage is appropriate given positive wound cultures. Consider antibiotic de-escalation once full sensitivities are available. Postoperative Day #6: Left BKA guillotine amputation. Stump improving; plan for definitive closure on Wednesday. Continue wound care and monitor for signs of infection or necrosis. Maintain isolation precautions due to MRSA. Pain and Symptom Control Morphine 2 mg IV q4h PRN for severe pain. Acetaminophen 325 mg PO q4h PRN for mild pain. Ondansetron 4 mg IV q4h PRN for nausea. #Source of severe sepsis and systemic inflammatory response. #MRSA and polymicrobial infection confirmed on wound cultures. #Diabetes mellitus with hyperglycemia #Poorly controlled (HbA1c 9.5%). #Severe sepsis with lactic acidosis Monitor lactate levels, renal function, and hemodynamics. Maintain fluid resuscitation and electrolyte balance. Insulin glargine 25 units at bedtime Hold Insulin lispro per sliding scale or meal coverage. Monitor glucose levels closely; adjust insulin as needed. # Amputation to diabetic foot gangrene and osteomyelitis. Requires aggressive management and monitoring. #Reactive thrombocytosis #Likely secondary to infection and inflammation. #Dyslipidemia, Atorvastatin #Glaucoma Continue latanoprost eyedrops #Vitamin D deficiency #Chronic comorbidities requiring ongoing management. #Leukocytosis trending down 16.2 to 14.8 #Anemia of chronic disease, #Hypoalbuminemia Plan of care discussion, more than 29 minute spent with patient. Full code status Case discussed with Dr. Tobar Goals of care discussed with patient for over 25 minutes. Full code statuS. Discussed plan with Dr. Luis Plan discussed with: Patient, Other (Nurse) My Orders My Orders Orders - EVE JACOBSEN Procedure Category Date Status Time Basic Metabolic Panel LAB 11/27/24 Verified 04:00 Nutritional PHA 11/27/24 Verified Supplements (Bipin 08:00 Dietary Evaluation Review Comments: 1) Bipin 1 pk BID 2) Refer Architecture Intern for diabetes education Expected Outcomes/Goals: Wound to improve Fu 3-5 days Date of Service: Nov 26, 2024 Billing Provider: JEVON LUIS MD Common Visit Codes: [id number] INP/OBS CARE(HIGH) EVE JACOBSEN Nov 26, 2024 19:01 JEVON LUIS MD Dec 01, 2024 22:11
[2024-11-26] MEDS: PIPERACILLIN-TAZOB 3.375GM 100 ML IV SCH (22:14)
[2024-11-27] VITALS (10 sets, daily range): BP systolic 140–164; BP diastolic 76–87; PULSE 72–87; RESP 18; TEMP 97.9–98.6; O2SAT 95–100
[2024-11-27] MEDS: VANCOMYCIN 1GM/250ML KIT 250 ML IV SCH (01:23)
[2024-11-27] MEDS: Juven Orange Powder PACKET 27.5gm PO SCH (07:37)
--- NOTE | 2024-11-27 09:38 | DVHPNRES ---
Progress Note Date Seen: Nov 27, 2024 Resident Creating Document: EVE JACOBSEN RESIDENT Has the PT tested + for MRSA If YES, has PT been informed?: Yes Medical Necessity Reason Pt with a Central, PICC or Fol: No Subjective Review of Systems Zachary Raman is a 59-year-old male who presented to the emergency department with worsening pain, swelling, and foul-smelling drainage from a chronic diabetic ulcer on the dorsum of his left foot. The ulcer has been present for approximately one year, but symptoms have significantly worsened over the past four days. He reports severe pain rated 10/10, radiating to the ankle aggravated by walking and relieved by rest. Denies fever, chills, dyspnea, chest pain, unintentional weight loss, bleeding and motor or sensory deficits. Past medical history: Dyslipidemia, diabetes mellitus, diabetic foot, glaucoma, vitamin-D deficiency Surgical history: Denies Family history: Noncontributory Social history: Lives in [place] with family. Current smoker (approximately 10 pack-year history of smoking). Denies current alcohol and other drug abuse. Allergies: Denies Home medication: Atorvastatin 20 mg p.o. daily, vitamin-D, latanoprost, metformin 1000 mg p.o. b.i.d. 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 Surgery consult appreciated. Lab shows WBC trending down 14.4>13.4 . Plan discussed with patient and patient agree with current management. No Erythema on the surgical site, no edema, no discharge or bleeding noted. Amputating stump covered with dry gauze piece. Objective vital signs Vital Sign Date Time Temp Pulse Resp B/P (MAP) Pulse Ox O2 Delivery O2 Flow Rate FiO2 11/27/24 09:20 156/87 11/27/24 08:36 18 Room Air* 0 21 11/27/24 05:00 98.4 77 99 98.4 Total Intake and Output 11/26/24 11/26/24 11/27/24 15:00 23:00 07:00 Intake Total 560 ml 1200 ml 1150 ml Output Total 1101 ml 1000 ml Balance 560 ml 99 ml 150 ml medications Current Medications Medications Dose Ordered Sig/Ralph Route Start Time Stop Time Status Last Admin Dose Admin Acetaminophen 325 mg Q4HP PRN PO 11/20/24 01:00 Ondansetron HCl 4 mg Q4HP PRN IV 11/20/24 01:00 Morphine Sulfate 2 mg Q4HPRN PRN IV 11/20/24 01:00 Vancomycin HCl 0 ml @ 0 mls/hr UD IV 11/20/24 01:00 Atorvastatin Calcium 40 mg HS PO 11/20/24 22:00 11/26/24 22:14 40 MG Latanoprost 1 drop HS EACHEYE 11/20/24 22:00 11/26/24 22:00 1 DROP Sodium Chloride 1,000 ml @ 75 mls/hr [id number] IV 11/20/24 10:45 11/26/24 17:47 75 MLS/HR Vancomycin HCl 250 ml @ 200 mls/hr Q8H IV 11/21/24 13:00 UNV Losartan Potassium 50 mg DAILY PO 11/23/24 11:15 11/27/24 09:20 50 MG Diagnostic Test (Pha) 1 strip ACHS 11/23/24 23:50 11/27/24 06:05 1 STRIP Dextrose 50 ml UD PRN IV 11/23/24 23:50 Insulin Human Lispro ACHS SC 11/23/24 23:50 11/26/24 22:38 2 UNITS Insulin Glargine 30 units DAILY@1000 SC 11/24/24 10:00 11/26/24 09:59 30 UNITS Piperacillin Sod/ Tazobactam Sod 100 ml @ 25 mls/hr Q8HR IV 11/26/24 22:00 11/27/24 06:08 25 MLS/HR Vancomycin HCl 250 ml @ 200 mls/hr Q12H IV 11/27/24 01:00 11/27/24 01:23 200 MLS/HR Enteral Nutritional Formula 27.5 gm BIDWM PO 11/27/24 08:00 Examination General: afebrile, mucosae are moist, Patient lying in bed, in no acute distress Cardiovascular: Normal S1 and S2. No murmurs, gallops or rubs Respiratory: Normal ventilation mechanics. Clear lung sounds on auscultation Abdomen: Soft, nontender, no organomegaly, normal bowel sounds MSK/skin: Mobilizes 4 limbs. Left flfwj-pib-obtg supramalleolar amputation which is open, with oozing discharge; serosanguineous. Surgical site no edema, erythema, discharge or bleeding noted. Neurological: Oriented in 3 spheres. No motor no sensitive deficits. laboratory and microbiology Laboratory Tests 11/26/24 06:43 11/25/24 06:45 Test 11/25/24 06:45 Range/Units Serum Glucose 215 H 74-106 mg/dL Microbiology Date/Time Source Procedure Growth Status 11/20/24 09:56 Leg Left Gram Stain - Final Complete 11/20/24 09:56 Anaerobic Culture - Final Prevotella loescheii Complete 11/20/24 09:56 Aerobic Culture - Final Enterobacter cloacae Streptococcus Group B Complete 11/19/24 21:44 Blood Blood Culture - Final NO GROWTH AFTER 5 DAYS OF INCUBATION. Complete Labs and/or images reviewed: Labs reviewed by me, Image(s) reviewed by me Problem List/Assessment/Plan Problem List/Assessment/Plan Assessment and plan #Left diabetic foot osteomyelitis (2nd metatarsal head and proximal phalanx) #Complicated by soft tissue abscess and extensive infection. #Status post supramalleolar amputation and [id number] guillotine amputation; POD #7 #Imaging confirms extensive osteomyelitis and abscess formation CT on 11/19/2024 #Diabetic wet gangrene of left foot Continue IV Zosyn and vancomycin MRSA coverage is appropriate given positive wound cultures. Consider antibiotic de-escalation. Postoperative Day #7: Surgery is following Left BKA guillotine amputation on 11/20/2024 Stump improving; plan for closure of today by surgery Continue wound care and monitor for signs of infection or necrosis. Maintain isolation precautions due to MRSA. Pain and Symptom Control Morphine 2 mg IV q4h PRN for severe pain. Acetaminophen 325 mg PO q4h PRN for mild pain. Ondansetron 4 mg IV q4h PRN for nausea. #Source of severe sepsis and systemic inflammatory response. #MRSA and polymicrobial infection confirmed on wound cultures. #Diabetes mellitus with hyperglycemia #Poorly controlled (HbA1c 9.5%). #Severe sepsis with lactic acidosis Monitor lactate levels, renal function, and hemodynamics. Maintain fluid resuscitation and electrolyte balance. Insulin glargine 25 units at bedtime Hold Insulin lispro per sliding scale or meal coverage. Monitor glucose levels closely; adjust insulin as needed. # Essential hypertension Start Losartan 50 mg instead of Losartan 25 mg Monitor BP # Amputation due to diabetic foot gangrene and osteomyelitis. Requires aggressive management and monitoring. #Reactive thrombocytosis #Likely secondary to infection and inflammation. #Dyslipidemia, Atorvastatin #Glaucoma Continue latanoprost eyedrops #Vitamin D deficiency #Chronic comorbidities requiring ongoing management. #Leukocytosis trending down 16.2 to 14.8 #Anemia of chronic disease, #Hypoalbuminemia #Tobacco use disorder Counseled on tobacco use cessation for 16 minutes Goals of care discussed with the patient for 20 minutes. Full code status Case discussed with Dr. Sherman Plan discussed with: Patient, Other (Nurse) My Orders My Orders Orders - EVE JACOBSEN RESIDENT Procedure Category Date Status Time Basic Metabolic Panel LAB 11/27/24 Logged 04:00 Nutritional PHA 11/27/24 In Process Supplements (Bipin 08:00 Type And Screen BBK 11/27/24 Logged 05:06 Dietary Evaluation Review Comments: 1) Bipin 1 pk BID 2) Refer Commodities Trader for diabetes education Expected Outcomes/Goals: Wound to improve Fu 3-5 days Addendum Addendum Addendum I was physically present for the abbasi portions of the service provided to patient by THE RESIDENT. I have reviewed the documentation, discussed the case with resident and agree with the resident's documentation except as noted. Also the patient's clinical case was discussed with the patient's nurse. This medical document was created using an electronic medical record system with computerized dictation system. Although this document has been carefully reviewed, there might still be some phonetic and typographical errors. These areas are purely typographical due to imperfections of the software programs, and do not reflect any compromise in the patient's medical care. Late signature. Date of Service: Nov 27, 2024 Billing Provider: CHRIS SHERMAN MD Common Visit Codes: 84505-SQEWIAEBWR INP/OBS CARE(HIGH) Secondary Visit Codes: 58803-DTQHC CHNG SMOKING >10MIN (16 minutes), 49400- ADVANCED CARE PLAN 30 MINUTES (20 minutes) EVE JACOBSEN RESIDENT Nov 27, 2024 09:38 CHRIS SHERMAN MD Nov 28, 2024 13:04
[2024-11-27 10:10] LABS: Hematocrit 36.7 % (41.0-53.0); Hemoglobin 12.7 g/dL (13.5-17.5); Mean Corpuscular Hemoglobin 28.8 pg (28.0-32.0); Mean Corpuscular Volume 83.3 fL (80.0-100.0); Nucleated Red Blood Cells % 0.0 %
[2024-11-27 10:15] LABS: Chloride 103 mmol/L (98-107); Potassium 4.2 mmol/L (3.5-5.1); Sodium 140 mmol/L (136-145)
[2024-11-27 10:16] LABS: Anion Gap 7 (5-15); Calcium 8.9 mg/dL (8.7-10.4); Carbon Dioxide 30 mmol/L (20-31)
[2024-11-27 10:21] LABS: BUN/Creatinine Ratio 11.0 (10.0-20.0); Blood Urea Nitrogen 10 mg/dL (9-23)
[2024-11-27 10:26] LABS: Glucose 138 mg/dL (74-106)
[2024-11-27] MEDS ORDERED: fentaNYL CITRATE 100 MCG/2 ML VL ONE (19:03)
[2024-11-27] MEDS ORDERED: MIDAZOLAM HCL 2MG/2ML 2ml VIAL (1mg/ml) ONE (19:03)
[2024-11-27] MEDS ORDERED: ONDANSETRON HCL 4 MG/2 ML VIAL IV PRN (20:30)
[2024-11-27] MEDS ORDERED: HYDROmorphone HCL 2 MG/ML VL/or syr IV PRN ×2 (20:30)
--- NOTE | 2024-11-27 20:44 | DVHOP2 ---
Operative Report - 2 Report Details Date: 11/27/24 Preop Diagnosis: Status post left elqyw-dwf-ndcr guillotine amputation secondary to left foot diabetic wet gangrene Postop Diagnosis: Same Surgeon: Michael Le MD Supervisor [place] Department: None Anesthesiologist: Dr. Phillips Anesthesia: General Consent: The patient was informed of the risks and benefits of the procedure. These include but are not limited to complications of anesthesia, postoperative infection, incomplete relief of symptoms, recurrence of symptoms, damage to blood vessels, nerves and tendons, deep venous thrombosis, pulmonary embolism and possible need for repeat surgery in the future. Complications: None Estimated Blood Loss: 150 mL Findings: Total tourniquet time 21 minutes at 250 mmHg Name of Procedure Performed Left fggul-lmo-[id number] closure Procedure Details Procedure Details: After induction of general anesthesia, patient's left lower extremity was prepped and draped in standard surgical fashion. An Esmarch was used to exsanguinate the left lower extremity and the tourniquet was turned on to 250 mmHg. A semi circumferential incision was made anteriorly about 8 cm below the tibial tuberosity. Incision extended laterally on each side and the posterior incision was made more distally. The left femur was 1st exposed and this was amputated and the anterior edge was then beveled. The left fibula was then and amputated proximally 1 cm above the level of the tibial amputation. The ant erior tibial and posterior tibial neurovascular bundles were suture ligated using 0 Vicryl sutures. The anterior compartment was then completely divided down leading to the posterior compartment. Enough of the posterior compartment was left intact to create the posterior flap. The tourniquet was then turned off with the total tourniquet time of 21 minutes at 250 mmHg. The surgical site was then well irrigated. The posterior flap was then reapproximated to the anterior edge using interrupted 0 Vicryl sutures with intermittent 2-0 Vicryl sutures. Skin incision was then closed using prema. Surgical site was cleaned and dried and dressings were applied. Sponge, needle, instrument count at the end of the case were reported to be correct by the nursing staff. The patient tolerated procedure well and was awake and extubated and transferred to recovery in stable condition. Specimen: Left lower leg stump Condition Stable Disposition Still a Patient MICHAEL LE MD Nov 27, 2024 20:44
[2024-11-27] MEDS: MORPHINE SULFATE INJ 2 MG/ml SYRG IV PRN (22:30)
[2024-11-28 01:00] VITALS: BP 143/80; PULSE 106; RESP 20; TEMP 98.2; O2SAT 99
[2024-11-28 05:00] VITALS: BP 138/77; PULSE 99; RESP 18; TEMP 98.3; O2SAT 100
[2024-11-28 05:41] LABS: Anion Gap 6 (5-15); Carbon Dioxide 26 mmol/L (20-31); Chloride 102 mmol/L (98-107); Potassium 4.3 mmol/L (3.5-5.1)
[2024-11-28 05:48] LABS: BUN/Creatinine Ratio 17.0 (10.0-20.0); Blood Urea Nitrogen 15 mg/dL (9-23); Calcium 8.3 mg/dL (8.7-10.4); Glucose 343 mg/dL (74-106); Sodium 134 mmol/L (136-145)
[2024-11-28 06:00] LABS: Hemoglobin 11.1 g/dL (13.5-17.5)
[2024-11-28 06:03] LABS: Hematocrit 32.5 % (41.0-53.0); Mean Corpuscular Hemoglobin 28.7 pg (28.0-32.0); Mean Corpuscular Volume 84.1 fL (80.0-100.0); Nucleated Red Blood Cells % 0.0 %
[2024-11-28 08:00] VITALS: PULSE 78; RESP 18; O2SAT 98
--- NOTE | 2024-11-28 08:23 | DVHPN2 ---
Progress Note - Dictate Date Seen: Nov 28, 2024 Has the PT tested + for MRSA If YES, has PT been informed?: Yes Medical Necessity Reason Pt with a Central, PICC or Fol: No Subjective E: no major events o/n. no complaints. vital signs Vital Sign Date Time Temp Pulse Resp B/P (MAP) Pulse Ox O2 Delivery O2 Flow Rate FiO2 11/28/24 05:00 98.3 99 18 138/77 (97) 100 98.3 11/27/24 20:42 Room Air 0 100 Total Intake and Output 11/27/24 11/27/24 11/28/24 15:00 23:00 07:00 Intake Total 600 ml 600 ml Output Total 650 ml 1200 ml Balance -50 ml -600 ml medications Current Medications Medications Dose Ordered Sig/Ralph Route Start Time Stop Time Status Last Admin Dose Admin Acetaminophen 325 mg Q4HP PRN PO 11/20/24 01:00 Ondansetron HCl 4 mg Q4HP PRN IV 11/20/24 01:00 Morphine Sulfate 2 mg Q4HPRN PRN IV 11/20/24 01:00 11/27/24 22:30 2 MG Vancomycin HCl 0 ml @ 0 mls/hr UD IV 11/20/24 01:00 Atorvastatin Calcium 40 mg HS PO 11/20/24 22:00 11/27/24 22:04 40 MG Latanoprost 1 drop HS EACHEYE 11/20/24 22:00 11/26/24 22:00 1 DROP Sodium Chloride 1,000 ml @ 75 mls/hr [id number] IV 11/20/24 10:45 11/27/24 16:13 75 MLS/HR Vancomycin HCl 250 ml @ 200 mls/hr Q8H IV 11/21/24 13:00 UNV Losartan Potassium 50 mg DAILY PO 11/23/24 11:15 11/27/24 09:20 50 MG Diagnostic Test (Pha) 1 strip ACHS 11/23/24 23:50 11/28/24 06:58 1 STRIP Dextrose 50 ml UD PRN IV 11/23/24 23:50 Insulin Human Lispro ACHS SC 11/23/24 23:50 11/28/24 07:00 4 UNITS Insulin Glargine 30 units DAILY@1000 SC 11/24/24 10:00 11/26/24 09:59 30 UNITS Piperacillin Sod/ Tazobactam Sod 100 ml @ 25 mls/hr Q8HR IV 11/26/24 22:00 11/28/24 05:54 25 MLS/HR Vancomycin HCl 250 ml @ 200 mls/hr Q12H IV 11/27/24 01:00 11/28/24 01:42 200 MLS/HR Enteral Nutritional Formula 27.5 gm BIDWM PO 11/27/24 08:00 objective GEN: NAD LLE: surgical dressing clean and dry. laboratory and microbiology Laboratory Tests 11/28/24 05:00 Test 11/28/24 05:00 Range/Units Serum Glucose 343 #H 74-106 mg/dL Assessment/Plan A: 1. s/p L BKA closure POD #1 P: 1. cont iv abx. 2. remove bandages in 4-5 days. 3. f/u in my clinic next week. call [phone] for appt. Dietary Evaluation Review Comments: 1) Bipin 1 pk BID 2) Refer Project Planner for diabetes education Expected Outcomes/Goals: Wound to improve Fu 3-5 days Plan discussed with: Patient ADIEL HERNANDES MD Nov 28, 2024 08:23
[2024-11-28 09:00] VITALS: BP 143/86; PULSE 107; RESP 18; TEMP 98.5; O2SAT 98
[2024-11-28] MEDS ORDERED: SODIUM CHLORIDE 0.9% 500 ML IV ONE (11:45)
[2024-11-28 13:00] VITALS: BP 153/89; PULSE 106; RESP 18; TEMP 98.1; O2SAT 97
--- NOTE | 2024-11-28 13:38 | DVHPNRES ---
Progress Note Has the PT tested + for MRSA If YES, has PT been informed?: Yes Medical Necessity Reason Pt with a Central, PICC or Fol: No Objective vital signs Vital Sign Date Time Temp Pulse Resp B/P (MAP) Pulse Ox O2 Delivery O2 Flow Rate FiO2 11/28/24 09:36 142/81 11/28/24 09:00 98.5 107 18 98 98.5 11/28/24 08:00 Room Air* 0 21 Total Intake and Output 11/27/24 11/27/24 11/28/24 15:00 23:00 07:00 Intake Total 600 ml 600 ml Output Total 650 ml 1200 ml Balance -50 ml -600 ml medications Current Medications Medications Dose Ordered Sig/Ralph Route Start Time Stop Time Status Last Admin Dose Admin Acetaminophen 325 mg Q4HP PRN PO 11/20/24 01:00 Ondansetron HCl 4 mg Q4HP PRN IV 11/20/24 01:00 Morphine Sulfate 2 mg Q4HPRN PRN IV 11/20/24 01:00 11/27/24 22:30 2 MG Vancomycin HCl 0 ml @ 0 mls/hr UD IV 11/20/24 01:00 Atorvastatin Calcium 40 mg HS PO 11/20/24 22:00 11/27/24 22:04 40 MG Latanoprost 1 drop HS EACHEYE 11/20/24 22:00 11/26/24 22:00 1 DROP Sodium Chloride 1,000 ml @ 75 mls/hr [id number] IV 11/20/24 10:45 11/27/24 16:13 75 MLS/HR Vancomycin HCl 250 ml @ 200 mls/hr Q8H IV 11/21/24 13:00 UNV Losartan Potassium 50 mg DAILY PO 11/23/24 11:15 11/28/24 09:36 50 MG Diagnostic Test (Pha) 1 strip ACHS 11/23/24 23:50 11/28/24 11:06 1 STRIP Dextrose 50 ml UD PRN IV 11/23/24 23:50 Insulin Human Lispro ACHS SC 11/23/24 23:50 11/28/24 11:06 3 UNITS Insulin Glargine 30 units DAILY@1000 SC 11/24/24 10:00 11/28/24 09:40 30 UNITS Piperacillin Sod/ Tazobactam Sod 100 ml @ 25 mls/hr Q8HR IV 11/26/24 22:00 11/28/24 05:54 25 MLS/HR Vancomycin HCl 250 ml @ 200 mls/hr Q12H IV 11/27/24 01:00 11/28/24 01:42 200 MLS/HR Enteral Nutritional Formula 27.5 gm BIDWM PO 11/27/24 08:00 11/28/24 09:30 27.5 GM laboratory and microbiology Laboratory Tests 11/28/24 05:00 Test 11/28/24 05:00 Range/Units Serum Glucose 343 #H 74-106 mg/dL Microbiology Date/Time Source Procedure Growth Status 11/20/24 09:56 Leg Left Gram Stain - Final Complete 11/20/24 09:56 Anaerobic Culture - Final Prevotella loescheii Complete 11/20/24 09:56 Aerobic Culture - Final Enterobacter cloacae Streptococcus Group B Complete 11/19/24 21:44 Blood Blood Culture - Final NO GROWTH AFTER 5 DAYS OF INCUBATION. Complete Problem List/Assessment/Plan Problem List/Assessment/Plan Assessment and plan #Left diabetic foot osteomyelitis (2nd metatarsal head and proximal phalanx) #Complicated by soft tissue abscess and extensive infection. #Status post supramalleolar amputation and [id number]-otr-geoq guillotine amputation. pod #6 #Imaging confirms extensive osteomyelitis and abscess formation CT on 11/19/2024 #Diabetic wet gangrene of left foot Continue IV Zosyn and vancomycin MRSA coverage is appropriate given positive wound cultures. Consider antibiotic de-escalation. Postoperative Day #7: Left BKA guillotine amputation on 11/20/2024 Stump improving; plan for definitive closure today. Continue wound care and monitor for signs of infection or necrosis. Maintain isolation precautions due to MRSA. Pain and Symptom Control Morphine 2 mg IV q4h PRN for severe pain. Acetaminophen 325 mg PO q4h PRN for mild pain. Ondansetron 4 mg IV q4h PRN for nausea. #Source of severe sepsis and systemic inflammatory response. #MRSA and polymicrobial infection confirmed on wound cultures. #Diabetes mellitus with hyperglycemia #Poorly controlled (HbA1c 9.5%). #Severe sepsis with lactic acidosis Monitor lactate levels, renal function, and hemodynamics. Maintain fluid resuscitation and electrolyte balance. Insulin glargine 25 units at bedtime Hold Insulin lispro per sliding scale or meal coverage. Monitor glucose levels closely; adjust insulin as needed. # Essential hypertension Start Losartan 50 mg instead of Losartan 25 mg Monitor BP # Amputation to diabetic foot gangrene and osteomyelitis. Requires aggressive management and monitoring. #Reactive thrombocytosis #Likely secondary to infection and inflammation. #Dyslipidemia, Atorvastatin #Glaucoma Continue latanoprost eyedrops #Vitamin D deficiency #Chronic comorbidities requiring ongoing management. #Leukocytosis trending down 16.2 to 14.8 #Anemia of chronic disease, #Hypoalbuminemia Plan of care discussion, more than 24 minute spent with patient. Full code status Case discussed with Dr. Couch Goals of care discussed with patient for over 25 minutes. Full code statuS. Discussed plan with Dr. Luis Dietary Evaluation Review Comments: 1) Bipin 1 pk BID 2) Refer Laser Operator for diabetes education Expected Outcomes/Goals: Wound to improve Fu 3-5 days EVE JACOBSEN RESIDENT Nov 28, 2024 13:38
[2024-11-28] MEDS: VANCOMYCIN 1.25GM/250ML 250 ML IV SCH (15:24)
[2024-11-28 16:54] VITALS: BP 160/86; PULSE 99; RESP 18; TEMP 98.2; O2SAT 98
[2024-11-28] MEDS ORDERED: LOSA-534 PO (17:31)
[2024-11-28] MEDS ORDERED: INSU1INJ19 SC (17:31)
[2024-11-28] MEDS ORDERED: BLOO1KIT60 XX (17:31)
[2024-11-28] MEDS ORDERED: INSU100I4 SC (17:31)
[2024-11-28] MEDS ORDERED: LANCKIT12 XX (17:31)
[2024-11-28] MEDS ORDERED: INSU-450 XX (17:32)
[2024-11-28] MEDS ORDERED: LINE1TAB5 PO (17:34)
[2024-11-28] MEDS ORDERED: AUG875T PO (17:34)
--- NOTE | 2024-11-28 17:49 | DVHDSRES ---
Discharge Summary Date of Admission Resident Creating Document: EVE JACOBSEN RESIDENT Nov 20, 2024 at 00:47 Date of Discharge: Nov 28, 2024 Labs/Diagnostic Data: Laboratory Results Test 11/28/24 16:31 11/28/24 12:53 11/28/24 05:00 11/23/24 05:58 POC Glucose 293 mg/dl (70-106) Vancomycin Level Trough 10.1 ug/mL (5-10) White Blood Count 17.7 10^3/uL (4.4-10.8) Red Blood Count 3.86 10^6/uL (4.5-5.90) Hemoglobin 11.1 g/dL (13.5-17.5) Hematocrit 32.5 % (41.0-53.0) Mean Corpuscular Volume 84.1 fL (80.0-100.0) Mean Corpuscular Hemoglobin 28.7 pg (28.0-32.0) Mean Corpuscular Hemoglobin Concent 34.2 g/dL (32.0-36.0) Red Cell Distribution Width 14.2 % (11.8-14.3) Platelet Count 563 10^3/uL (140-450) Mean Platelet Volume 7.5 fL (6.9-10.8) Neutrophils (%) (Auto) 84.6 % (37.0-80.0) Lymphocytes (%) (Auto) 9.8 % (10.0-50.0) Monocytes (%) (Auto) 4.9 % (0.0-12.0) Eosinophils (%) (Auto) 0.1 % (0.0-7.0) Basophils (%) (Auto) 0.6 % (0.0-2.0) Neutrophils # (Auto) 15.0 10 ^3/uL (1.6-8.6) Lymphocytes # (Auto) 1.7 10 ^3/uL (0.4-5.4) Monocytes # (Auto) 0.9 10 ^3/uL (0-1.3) Eosinophils # (Auto) 0 10 ^3/uL (0-0.8) Basophils # (Auto) 0.1 10 ^3/uL (0-0.2) Nucleated Red Blood Cells 0.0 % Sodium Level 134 mmol/L (136-145) Potassium Level 4.3 mmol/L (3.5-5.1) Chloride Level 102 mmol/L (98-107) Carbon Dioxide Level 26 mmol/L (20-31) Anion Gap 6 (5-15) Blood Urea Nitrogen 15 mg/dL (9-23) Creatinine 0.88 mg/dL (0.700-1.30) Glomerular Filtration Rate Calc 99 mL/min (>90) BUN/Creatinine Ratio 17.0 (10.0-20.0) Serum Glucose 343 mg/dL (74-106) Calcium Level 8.3 mg/dL (8.7-10.4) Magnesium Level 2.0 mg/dL (1.6-2.6) Random Vancomycin Level 6.5 ug/mL (5-10) Test 11/21/24 05:28 11/21/24 05:24 11/20/24 06:00 11/20/24 05:58 Total Bilirubin 0.6 mg/dL (0.2-1.0) Aspartate Amino Transferase (AST) 38 U/L (13-40) Alanine Aminotransferase (ALT) 33 U/L (7-40) Alkaline Phosphatase 99 U/L (46-116) Total Protein 5.7 g/dL (5.7-8.2) Albumin 3.0 g/dL (3.2-4.8) Vitamin B12 Level 1515 pg/mL (211-911) Vitamin D 25-Hydroxy 52.1 ng/mL (30.0-100) Free Thyroxine (T4) Calculated 2.00 ng/dL (0.89-1.76) Lactic Acid Level 1.0 mmol/L (0.4-2.0) Urine Color Light-yellow (Yellow) Urine Clarity Clear (Clear) Urine pH 5.5 (5.0-9.0) Urine Specific [place] 1.042 (1.001-1.035) Urine Protein Negative (Negative) Urine Ketones 1+ (Negative) Urine Blood Negative /uL (Negative) Urine Nitrite Negative (Negative) Urine Bilirubin Negative (Negative) Urine Urobilinogen Normal mg/dL (Negative) Urine Leukocyte Esterase Negative /uL (Negative) Urine RBC 3 /hpf (0 - 3) Urine Microscopic WBC 1 /HPF (0-3) Urine Squamous Epithelial Cells Few /hpf (<5) Urine Bacteria None seen /hpf (None Seen) Urine Glucose 4+ mg/dL (Normal) Urine Opiates Screen Neg (NEGATIVE) Urine Fentanyl Screen Neg (NEGATIVE) Urine Barbiturates Screen Neg (NEGATIVE) Urine Phencyclidine Screen Neg (NEGATIVE) Urine Amphetamines Screen Neg (NEGATIVE) Urine Benzodiazepines Screen Neg (NEGATIVE) Urine Cocaine Screen Neg (NEGATIVE) Urine Cannabinoids Screen Neg (NEGATIVE) Prothrombin Time 12.0 sec (9.3-11.8) Prothrombin Time INR 1.15 (0.9-1.15) Activated Partial Thromboplast Time 29.9 SEC (24.5-34.5) Hemoglobin A1c 9.5 % A1C (<5.7) Thyroid Stimulating Hormone (TSH) 0.48 uIU/mL (0.55-4.78) Test 11/20/24 02:25 11/19/24 21:44 Influenza Type A Antigen Negative (Negative) Influenza Type B Antigen Negative (Negative) SARS-CoV-2 Antigen (Rapid) Negative (NEGATIVE) C-Reactive Protein High Sensitivity > 20.00 mg/dL (<1.0) Other Laboratory Tests 11/28/24 05:00 Brief Hx & Hospital Course: Zachary Raman is a 59-year-old male who presented to the emergency department with worsening pain, swelling, and foul-smelling drainage from a chronic diabetic ulcer on the dorsum of his left foot. The ulcer has been present for approximately one year, but symptoms have significantly worsened over the past four days. He reports severe pain rated 10/10, radiating to the ankle aggravated by walking and relieved by rest. Denies fever, chills, dyspnea, chest pain, unintentional weight loss, bleeding and motor or sensory deficits. Past medical history: Dyslipidemia, diabetes mellitus, diabetic foot, glaucoma, vitamin-D deficiency Surgical history: Denies Family history: Noncontributory Social history: Lives in [place] with family. Current smoker (approximately 10 pack-year history of smoking). Denies current alcohol and other drug abuse. Allergies: Denies Home medication: Atorvastatin 20 mg p.o. daily, vitamin-D, latanoprost, metformin 1000 mg p.o. b.i.d. Hospital course: Patient admitted due to left diabetic foot complicated with osteomyelitis of 2nd metatarsal head and proximal phalangeal base which is extends within the forefoot, midfoot and hindfoot, infection also extent tissue proximal extent of acquired [id number] lower leg. An abscess is partially imaged along the extensor tendon compartment. During hospital stay, patient treated with IV antibiotic. 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 Blood culture x2 negative for any growth but Wound culture growth MRSA. After treating with IV antibiotic surgical site shows no erythema, edema, bleeding or any active discharge. S/p BKA surgical site closure done on 11/28/2024, recommended to continue antibiotic, follow-up with surgery outpatient clinic on 12/04/2024 (call [phone] for appointment). Patient discharged with oral antibiotic Augmentin and Zyvox total 6 week. Patient is hemodynamically stable for discharge. Patient has received maximum benefit from inpatient treatment. Time was given to answer patient is questions and concerns in [place]man terms. Patient verbalized understanding and agree with treatment and follow-up plan patient was recommended to return to ER if any experienced or any worsening of symptoms including fever, bleeding from surgical site, any discharge. Follow-up with outpatient discharge clinic on Wednesday morning, surgery follow-up on 12/04/2024, with primary care within 2 weeks after discharge. Physical eaxm: Patient lying in bed, in no acute distress General: afebrile, mucosae are moist Cardiovascular: Normal S1 and S2. No murmurs, gallops or rubs Respiratory: Normal ventilation mechanics. Clear lung sounds on auscultation Abdomen: Soft, nontender, no organomegaly, normal bowel sounds MSK/skin: Mobilizes 4 limbs. Presents supramalleolar amputation covered with dry bandage. Neurological: Oriented in 3 spheres. No motor no sensitive deficits. Pupils are reactive Operations or Procedures ORDERING PHYSICIAN: MEERA NARVAEZ PROCEDURE(s): LFTCT - CT L FOOT WO CONTRAST REASON: wound ORDER NUMBER(s): [id number], ACCESSION NUMBER(s): [id number] EXAMINATION: CT CT L FOOT WO CONTRAST INDICATION: wound COMPARISON: None TECHNIQUE: CT of the left foot was performed without contrast. Volume transverse images were obtained reconstructed in multiple planes using bone and soft tissue algorithms. CTDIvol: 8 mGy. DLP: 260 mGy-cm. FINDINGS: Assessment is limited by lack of comparison exams, including recent radiographs, and also by patient motion artifact in the forefoot. Large 2.6 cm high-grade partial-thickness ulcer underlying the 2nd metatarsal head, with gas tract or fistula extending to the inferior cortex. Erosion of the underlying plantar aspects of the metatarsal head and proximal phalangeal base. Significant soft tissue swelling. Copious gas extends through the 1st webspace to the dorsal foot, extending proximally to the lateral ankle, and further superior along the anterior muscle compartment of the lower leg. Along the extensor compartment of the lower leg at the level of the distal tibiofibular diaphyses, an ill-defined but encapsulated appearing collection measures a proximally 3.4 x 0.9 cm axially (image 60/246). Otherwise circumferential soft tissue swelling is present. No additional area of osseous erosion is identified. No acute fracture, or periostitis. [place]-ff-fpebkbuy degenerative changes of the tarsometatarsal joints. IMPRESSION: 1. Exam limited as above. 2. Large plantar ulcer underlying the 2nd metatarsal head. Osteomyelitis of the 2nd metatarsal head and proximal phalangeal base, with high likelihood for further extent within the forefoot, possibly midfoot and hindfoot. 3. Extension of infection within soft tissues to the proximal extent of the acquired field of view in the lower leg. An abscess is partially imaged along the extensor tendon compartment. Orthopedic consultation is recommended. ATED BY: MAXI OBRIEN MD DICTATED DATE/TIME: 11/19/242205 ORDERING PHYSICIAN: JUAN RAMON DUVALL PROCEDURE(s): CXR1 - CHEST XRAY 1 VIEW REASON: chest pain ORDER NUMBER(s): [id number], ACCESSION NUMBER(s): [id number] EXAM: XY CHEST XRAY 1 VIEW Indication: chest pain Technique: Single frontal view of the chest was obtained Comparison: None FINDINGS: Lines and Tubes: None Lungs: No focal consolidation. Pleura: No effusion. No pneumothorax. Cardiomediastinal contours: Unremarkable. Atherosclerotic vascular calcifications of the thoracic aorta are noted. Bones: No acute osseous abnormality. IMPRESSION: No acute cardiopulmonary disease. ATED BY: BO SMITH MD DICTATED DATE/TIME: 11/23/24825 Condition at Discharge: Stable Final Diagnosis/Problems List Left diabetic foot complicated with osteomyelitis status post BKA. 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 eriof-hed-iztu guilcoronaine Diabetes mellitus with hyperglycemia Severe sepsis with lactic acidosis due to gangrene Reactive thrombocytosis Diabetes-uncontrolled (hemoglobin A1c 9.5%) Dyslipidemia Glaucoma Vitamin-D deficiency Leukocytosis Anemia of chronic disease Hypoalbuminemia Discharge Disposition: Home SNF Discharge Will this Physician continue t: No Discharge Instruct/Medications Diet: Cardiac 2g Na,low cholest Activity: No Restrictions, As Tolerated Scheduled Amoxicillin & Pot Clavulanate (Augmentin Tablet), 875 MG PO BID Insulin Glargine (Basaglar Kwikpen), 30 UNIT SC HS Insulin Lispro (Humalog Kwikpen), 5 UNIT SC TIDWM Losartan Potassium (Losartan Potassium), 50 MG PO DAILY Metformin Hydrochloride (Metformin Hcl), 1 TAB PO BID, (Reported) Zyvox (Zyvox Tablet), 600 MG PO BID Miscellaneous Medications Atorvastatin Calcium (Atorvastatin Calcium), TAB PO, (Reported) Ergocalciferol (Vitamin D), 1 PO, (Reported) Latanoprost (Latanoprost), EACHEYE, (Reported) Durable Medical Equipment Blood Glucose Monitoring Suppl (D-Care Glucometer Kit/Glu W/Device), KIT XX DAILY, (DME) Insulin Pen Needle (Fifty50 Pen [place] 31G X), 16 XX Q6HP PRN, (DME) Lancets Misc. (Accu-Chek Fastclix Lancet), UNIT XX DAILY, (DME) Discharge Statement: "Patient was advised to return to the ER or call 911 if any headaches, dizziness, shortness of breath, chest pain, abdominal pain, bleeding, fevers, or worsening of medical condition. Patient was counseled about treatment plan, medications, possible side effects, patientverbalized understanding. All questions were answered to the best of my ability. This discharge took greater then 30 minutes in planning, reviewing documentation, counseling the patient, and discussing with other team members." ASSESSMENT ASSESSMENT Assessment Left diabetic foot complicated with osteomyelitis status post BKA. Date of Service: Nov 28, 2024 Billing Provider: JEVON VALLEJO MD Common Visit Codes: 06441-YLM/OBS DISCH DAY >30min EVE JACOBSEN RESIDENT Nov 28, 2024 17:49 KAVIN TAPIA RESIDENT Nov 29, 2024 00:25 JEVON VALLEJO MD Dec 01, 2024 22:19
== END 2024-11-28 18:55 | disposition home or self-care (01) | DRG 854 ==
LOC: ER 20:58 → OVERFLOW 11-20 00:47 → WEST WING 11-20 15:44
PROVIDERS: ADMIT Student in an Organized Health Care Education/Training Program; ATTEND Student in an Organized Health Care Education/Training Program
PROC: 0Y6J0Z1 Detachment at Left Lower Leg, High, Open Approach (ICD-10-PCS; 2024-11-20)
PROC: 0YQG0ZZ Repair Left Knee Region, Open Approach (ICD-10-PCS; 2024-11-27)
PROC: 0Y680ZZ Detachment at Left Femoral Region, Open Approach (ICD-10-PCS; principal; 2024-11-27 18:58)
DX: A41.9 Sepsis, unspecified organism (principal); E11.52 Type 2 diabetes mellitus with diabetic peripheral angiopathy with gangrene; E87.20 Acidosis, unspecified; M86.8X7 Other osteomyelitis, ankle and foot; L02.612 Cutaneous abscess of left foot; E11.69 Type 2 diabetes mellitus with other specified complication; H40.9 Unspecified glaucoma; E78.5 Hyperlipidemia, unspecified; Z20.822 Contact with and (suspected) exposure to COVID-19; D75.838 Other thrombocytosis; R65.20 Severe sepsis without septic shock; E11.65 Type 2 diabetes mellitus with hyperglycemia; A49.02 Methicillin resistant Staphylococcus aureus infection, unspecified site; F17.210 Nicotine dependence, cigarettes, uncomplicated; E83.51 Hypocalcemia; E87.6 Hypokalemia; E11.621 Type 2 diabetes mellitus with foot ulcer; D63.8 Anemia in other chronic diseases classified elsewhere; E88.09 Other disorders of plasma-protein metabolism, not elsewhere classified; Z71.6 Tobacco abuse counseling
CPT/HCPCS: 36415; 71045; 73700; 80048; 80053; 80202; 80307; 81001; 82306; 82565; 82607; 82962; 83036; 83605; 83735; 84439; 84443; 85025; 85610; 85730; 86141; 86850; 86900; 86901; 87040; 87070; 87075; 87076; 87077; 87081; 87186; 87205; 87426; 87804; 96365; G0378; J0690; J0692; J1815; J1956; J2250; J2405; J2543; J2704; J3490

== ENCOUNTER 2025-01-08 10:52 | Inpatient (IN) | payer MEDICARE, MEDICAID ==
[~2025-01-08] VITALS: Ht 180.3 cm; Wt 80.0 kg
[~2025-01-08 10:52] MED LIST: ATOR20TA50 PO; AUG875T PO; BLOO1KIT60 XX; ERGO1CAP12 PO; INSU-450 XX; INSU100I4 SC; INSU1INJ19 SC; LANCKIT12 XX; LATA0.008 EACHEYE; LINE1TAB5 PO; LOSA-534 PO; METF-372 PO
--- NOTE | 2025-01-08 12:21 | ED.PDOC ---
Musculoskeletal HPI Comments 59-year-old male presents to the [id number] male presents to the ER with a prior MHx of diabetes: Surgical history of recent left BKA in the chief complaint of a wound check. The patient reports on having a dehiscence after hitting the left lower extremity against a rail yesterday. Controlled bleeding to the extremity. Denies any other symptoms at this time. Chief Complaint: Wound Check Time Seen by MD: 12:25 Reviewed Notes: Nurses Notes, Medications, Allergies Allergies: Coded Allergies: NO KNOWN ALLERGIES (Unverified , 11/19/24) Home Meds Active Scripts Amoxicillin & Pot Clavulanate (AUGMENTIN TABLET) 875 Mg Tb, 875 MG PO BID for 42 Days, #84 TAB Prov:GODFREY PONCE 11/28/24 Zyvox (ZYVOX TABLET) 600 Mg Tb, 600 MG PO BID for 42 Days, #84 TAB Prov:GODFREY PONCE 11/28/24 Insulin Pen Needle (FIFTY50 PEN NEEDLES 31G X) 31GX3/16 Mis, 16 XX Q6HP PRN, #100 3 Refills please check sugars everyday fasting and then at lunch, 2 h after, bring it dc clinic Prov:GODFREY PONCE 11/28/24 Blood Glucose Monitoring Suppl (D-Care Glucometer Kit/Glu W/Device) 1 Kit Kit, KIT XX DAILY, #1 please check sugars everyday fasting and then at lunch, 2 h after, bring it dc clinic Prov:GODFREY PONCE 11/28/24 Lancets [facility] [place]. (ACCU-CHEK FASTCLIX LANCET) Fastclix Kit, UNIT XX DAILY, #100 3 Refills please check sugars everyday fasting and then at lunch, 2 h after, bring it dc clinic Prov:GODFREY PONCE 11/28/24 Insulin Lispro (Humalog Kwikpen) 100 Unit/Ml Inj, 5 UNIT SC TIDWM for 30 Days, #2 INJ 3 Refills Prov:GODFREY PONCE 11/28/24 Insulin Glargine (Basaglar Kwikpen) 100 Unit/Ml Inj, 30 UNIT SC HS for 30 Days, #3 INJ 3 Refills Prov:GODFREY PONCE 11/28/24 Losartan Potassium (Losartan Potassium) 50 Mg Tab, 50 MG PO DAILY for 30 Days, #30 TAB Prov:GODFREY PONCE RESIDENT 11/28/24 Reported Medications Metformin Hydrochloride (Metformin Hcl) 1,000 Mg Tab, 1 TAB PO BID, #60 TAB 5 Refills 11/20/24 Atorvastatin Calcium (ATORVASTATIN CALCIUM) 20 Mg Tab, TAB PO 11/20/24 Latanoprost (LATANOPROST) 0.005 % Yael, EACHEYE 11/20/24 Ergocalciferol (Vitamin D) 50,000 Unit Cap, 1 PO 11/20/24 Information Source: Patient Mode of Arrival: Wheelchair Location: Left Extremity Location: Leg Timing: Hours Prehospital treatment: None Severity: Moderate Able to Move Extremity: Yes Bear Weight: Limited Pain: Moderate Hand Dominance: Right Mechanism: Blunt Trauma Circumstances: Accident Onset of Symptoms: Spontaneous, After Trauma Symptoms: Pain (04/07) DVT Risk Factors: NONE Last Tetanus: Unknown Past Medical History PAST MEDICAL HISTORY: DM, Denies Surgical History: Denies all surgeries Family History Family History: Reviewed,noncontributory to illness, Unknown Social History Smoker: Non-Smoker Alcohol: Denies ETOH Use Drugs: Denies Drug Use Lives In: Home Constitutional: denies: chills, diaphoresis, fatigue, fever, malaise, sweats, weakness, others EENTM: denies: blurred vision, double vision, ear bleeding, ear discharge, ear drainage, ear pain, ear ringing, eye pain, eye redness, hearing loss, mouth pain, mouth swelling, nasal discharge, nose bleeding, nose congestion, nose pain, photophobia, tearing, throat pain, throat swelling, voice changes, others Respiratory: denies: cough, hemoptysis, orthopnea, SOB at rest, shortness of breath, SOB with excertion, stridor, wheezing, others Cardiovascular: denies: chest pain, dizzy spells, diaphoresis, Dyspnea on exertion, edema, irregular heart beat, left arm pain, lightheadedness, palpitations, PND, syncope, others Gastrointestinal: denies: abdomen distended, abdominal pain, blood streaked bowels, constipated, diarrhea, dysphagia, difficulty swallowing, hematemesis, melena, nausea, poor appetite, poor fluid intake, rectal bleeding, rectal pain, vomiting, others Genitourinary: denies: burning, dysuria, flank pain, frequency, hematuria, incontinence, penile discharge, penile sore, pain, testicle pain, testicle swelling, urgency, others Neurological: denies: dizziness, fainting, headache, left sided numbness, left sided weakness, numbness, paresthesia, pre-existing deficit, right sided numbness, right sided weakness, seizure, speech problems, tingling, tremors, weakness, others Musculoskeletal: denies: back pain, gout, joint pain, joint swelling, muscle pain, muscle stiffness, neck pain, others Integumetry: reports: others (Dehiscence wound approximately 6 cm at length); denies: bruises, change in color, change in hair/nails, dryness, laceration, lesions, lumps, rash, wounds Allergic/Immunocompromised: denies: Difficulty Healing, Frequent Infections, Hives, Itching, others Hematologic/Lymphatic: denies: anemia, blood clots, easy bleeding, easy bruising, swollen glands, others Endocrine: denies: excessive hunger, excessive sweating, excessive thirst, excessive urination, flushing, intolerance to cold, intolerance to heat, unexplained weight gain, unexplained weight loss, others Psychiatric: denies: anxiety, bipolar disorder, depression, hopeless, panic disorder, schizophrenia, sleepless, suicidal, others All Other Systems: Reviewed and Negative Physical Exam Exam Comments Dehiscence wound approximately 6 cm at length jagged edges no active bleeding no discharge no surrounding erythema no TTP General Appearance: No Apparent Distress, Normal HEENT: Normal ENT Inspection, Pharynx Normal, TMs Normal Neck: Full Range of Motion, Non-Tender, Normal, Normal Inspection Respiratory: Chest Non-Tender, Lungs Clear, No Accessory Muscle Use, No Respira tory Distress, Normal Breath Sounds Cardiovascular: No Edema, No JVD, No Murmur, No Gallop, Normal Peripheral Pulses, Regular Rate/Rhythm Breast Exam: Deferred Gastrointestinal: No Organomegaly, Non Tender, No Pulsatile Mass, Normal Bowel Sounds, Soft Genitalia: Deferred Pelvic: Deferred Rectal: Deferred Extremities: No calf tenderness, Normal capillary refill, Normal inspection, Normal range of motion, Non-tender, No pedal edema Musculoskeletal : Apperance: Normal Neurologic: Alert, ribbon winder II-XII nml as Tested, No Motor Deficits, Normal Affect, Normal Mood, No Sensory Deficits Cerebellar Function: Normal Reflexes: Normal Skin: Dry, Normal Color, Warm Lymphatic: No Adenopathy Was a procedure done? Was a procedure done?: No Differential Diagnosis EXT Differential Diagnosis: Laceration X-Ray, Labs, Meds, VS Vital Signs Date Time Temp Pulse Resp B/P (MAP) Pulse Ox O2 Delivery O2 Flow Rate FiO2 01/08/25 10:54 98.0 80 16 178/89 100 98.0 Lab Test 01/08/25 12:41 01/08/25 12:27 Range/Units White Blood Count 7.7 4.4-10.8 10^3/uL Red Blood Count 4.86 4.5-5.90 10^6/uL Hemoglobin 14.5 13.5-17.5 g/dL Hematocrit 42.4 41.0-53.0 % Mean Corpuscular Volume 87.3 80.0-100.0 fL Mean Corpuscular Hemoglobin 29.8 28.0-32.0 pg Mean Corpuscular Hemoglobin Concent 34.2 32.0-36.0 g/dL Red Cell Distribution Width 15.3 H 11.8-14.3 % Platelet Count 251 140-450 10^3/uL Mean Platelet Volume 8.3 6.9-10.8 fL Neutrophils (%) (Auto) 63.4 37.0-80.0 % Lymphocytes (%) (Auto) 27.8 10.0-50.0 % Monocytes (%) (Auto) 6.6 0.0-12.0 % Eosinophils (%) (Auto) 1.2 0.0-7.0 % Basophils (%) (Auto) 1.0 0.0-2.0 % Neutrophils # (Auto) 4.9 1.6-8.6 10 ^3/uL Lymphocytes # (Auto) 2.1 0.4-5.4 10 ^3/uL Monocytes # (Auto) 0.5 0-1.3 10 ^3/uL Eosinophils # (Auto) 0.1 0-0.8 10 ^3/uL Basophils # (Auto) 0.1 0-0.2 10 ^3/uL Nucleated Red Blood Cells 0.0 % Sodium Level 140 136-145 mmol/L Potassium Level 4.6 3.5-5.1 mmol/L Chloride Level 110 H 98-107 mmol/L Carbon Dioxide Level 27 20-31 mmol/L Anion Gap 3 L 5-15 Blood Urea Nitrogen 10 9-23 mg/dL Creatinine 0.93 0.700-1.30 mg/dL Glomerular Filtration Rate Calc 95 >90 mL/min BUN/Creatinine Ratio 10.8 10.0-20.0 Serum Glucose 180 H 74-106 mg/dL Calcium Level 9.2 8.7-10.4 mg/dL Urine Color Light-yellow Yellow Urine Clarity Clear Clear Urine pH 6.0 5.0-9.0 Urine Specific [place] 1.014 1.001-1.035 Urine Protein Negative Negative Urine Ketones Negative Negative Urine Blood Negative Negative /uL Urine Nitrite Negative Negative Urine Bilirubin Negative Negative Urine Urobilinogen Normal Negative mg/dL Urine Leukocyte Esterase Negative Negative /uL Urine RBC 1 0 - 3 /hpf Urine Microscopic WBC < 1 0-3 /HPF Urine Squamous Epithelial Cells Few <5 /hpf Urine Bacteria None seen None Seen /hpf Urine Glucose 2+ H Normal mg/dL X-Ray, Labs, Meds, VS Comment Patients work up was remarkable for wound dehiscence of the left BKA The patient's workup reveals that the patient needs further evaluation and/or treatment for the above medical conditions. Patient verbalized understanding of the above and is awaiting further evaluation by the admitting service. Time of 1ST Reevaluation: 12:55 Reevaluation 1ST: Unchanged Patient Education/Counseling: Diagnosis, Treatment, Prognosis Family Education/Counseling: No Family Present Departure 1 Departure Time of Disposition: 12:22 Impression: Primary Impression: Wound dehiscence Disposition: ADMITTED INPATIENT Condition: Fair Critical Care Note Critical Care Time?: No Stability Stability form required: No I personally scribed for MANSOOR MOREAU NP (BRADY) on 01/08/25 at 12:21. El ectronically submitted by Amadou Jay (DOMINGOANCERA). I personally scribed for MANSOOR MOREAU NP (BRADY) on 01/08/25 at 12:39. Verónica ctronically submitted by Amadou Jay (DOMINGOANCERA). MANSOOR MOREAU NP Jan 08, 2025 12:21
[2025-01-08 12:51] LABS: Hematocrit 42.4 % (41.0-53.0); Hemoglobin 14.5 g/dL (13.5-17.5); Mean Corpuscular Hemoglobin 29.8 pg (28.0-32.0); Mean Corpuscular Volume 87.3 fL (80.0-100.0); Nucleated Red Blood Cells % 0.0 %
[2025-01-08 13:00] LABS: Potassium 4.6 mmol/L (3.5-5.1); Sodium 140 mmol/L (136-145)
[2025-01-08 13:01] LABS: Anion Gap 3 (5-15); Carbon Dioxide 27 mmol/L (20-31); Chloride 110 mmol/L (98-107)
[2025-01-08 13:02] LABS: Calcium 9.2 mg/dL (8.7-10.4)
[2025-01-08 13:06] LABS: BUN/Creatinine Ratio 10.8 (10.0-20.0); Blood Urea Nitrogen 10 mg/dL (9-23)
[2025-01-08 13:21] LABS: Glucose 180 mg/dL (74-106)
[2025-01-08 13:29] LABS: Urine Protein, UAD Negative (Negative)
[2025-01-08] MEDS ORDERED: DEXTROSE (50%) 50ML SYRG IV PRN (13:45)
[2025-01-08] MEDS ORDERED: ACETAMINOPHEN 325 MG TAB PO PRN (13:45)
[2025-01-08] MEDS ORDERED: DOCUSATE SOD 100 MG CAP PO PRN (13:45)
[2025-01-08] MEDS ORDERED: ONDANSETRON HCL 4 MG/2 ML VIAL IV PRN (13:45)
[2025-01-08] MEDS ORDERED: HYDROcodone-ACET 5/325MG TAB PO PRN (13:45)
[2025-01-08] MEDS: SODIUM CHLOR 0.9% PF (SALINE LOCK) 10ML VIAL/SYR IV SCH (14:00)
--- NOTE | 2025-01-08 14:20 | DVHHP2 ---
History of Present Illness Reason for Visit: Wound dehiscence History of Present Illness The patient is a 59-year-old male with past medical history of diabetes mellitus, hypertension, and hyperlipidemia who presented to [facility] ED for evaluation of left below-knee amputation wound. Patient reports on having a wound dehiscence after hitting the left lower knee against a rail yesterday. Patient was seen and evaluated in the ED, laboratory data shows WBC 7.7, platelets 251, sodium 140, potassium 4.6, BUN 10, creatinine 0.93, glucose 180, calcium 9.2, blood pressure 176/89 trending down to 146/80, heart rate 80, temperature 98.0 F, O2 saturation 99% on room air. Please see medication orders section in the computer. On my assessment, patient denies chest pain, no dizziness, headache, diaphoresis, shortness of breaths, diarrhea, nausea, vomiting, fever, chills. Patient was admitted for further evaluation and medical management. Past Medical History DM, HLD, HTN, Past Surgical History Denies all surgeries Family History Reviewed, noncontributory to the management of this case. Past Social History The patient lives at home, denies smoking, alcohol or illicit drugs abuse. Review of Systems Constitutional: No: Fever, Chills, Sweats, Weakness, Malaise, Other Eyes: No: Pain, Vision change, Conjunctivae inflammation, Eyelid inflammation, Other, Redness ENT: No: Ear pain, Ear discharge, Nose pain, Nose discharge, Nose congestion, Mouth pain, Mouth swelling, Throat pain, Throat swelling, Other Respiratory: No: Cough, Dry, Shortness of breath, SOB with excertion, Wheezing, Hemoptysis, Pleuritic Pain, Sputum, Wheezing, Other Cardiovascular: No: Chest Pain, Palpitations, Orthopnea, Paroxysmal Noc. Dyspnea, Edema, Lt Headedness, Other Gastrointestinal: No: Nausea, Vomiting, Abdominal Pain, Diarrhea, Constipation, Melena, Hematochezia, Other Genitourinary: No Dysuria, No Frequency, No Incontinence, No Hematuria, No Retention, No Other Musculoskeletal: other (Left below-knee amputation); No: neck pain, shoulder pain, arm pain, back pain, hand pain, leg pain, foot pain Skin: No: Rash, Lesions, Jaundice, Bruising, Other Neurological: No: Weakness, Numbness, Incoordination, Change in speech, Confusion, Seizures, Other Allergies: Coded Allergies: NO KNOWN ALLERGIES (Unverified , 11/19/24) Medications Current Medications Medications Dose Ordered Sig/Ralph Route Start Time Stop Time Status Last Admin Dose Admin Atorvastatin Calcium 20 mg HS PO 01/08/25 22:00 Amlodipine Besylate 10 mg DAILY PO 01/09/25 10:00 Metoprolol Tartrate 25 mg BID PO 01/08/25 22:00 Clonidine HCl 0.1 mg Q4HP PRN PO 01/08/25 13:45 Diagnostic Test (Pha) 1 strip ACHS 01/08/25 17:00 Insulin Human Regular HS SC 01/08/25 22:00 Insulin Human Regular AC SC 01/08/25 17:00 Dextrose 50 ml UD PRN IV 01/08/25 13:45 Sodium Chloride 10 ml Q8HR IV 01/08/25 14:00 Acetaminophen/ Hydrocodone Bitart 1 tab Q4HP PRN PO 01/08/25 13:45 Ondansetron HCl 4 mg Q4HP PRN IV 01/08/25 13:45 Docusate Sodium 100 mg BIDPRN PRN PO 01/08/25 13:45 Acetaminophen 650 mg Q6HP PRN PO 01/08/25 13:45 Exam Vital Signs Vital Signs Date Time Temp Pulse Resp B/P (MAP) Pulse Ox O2 Delivery O2 Flow Rate FiO2 01/08/25 10:54 98.0 80 16 178/89 100 98.0 General Appearance: Alert, Oriented X3, Cooperative, No acute distress HEENT: Atraumatic, PERRLA, EOMI, Mucous membr. moist/pink Respiratory: Clear to auscultation, Normal air movement Cardiovascular: Regular rate, Normal S1, Normal S2, No murmurs Abdominal: Normal bowel sounds, Soft, No tenderness, No hepatospenomegaly, No masses Extremities: No clubbing, No cyanosis, No edema, Normal pulses, Other (Left below-knee amputation.) Skin: No rashes, No breakdown, No significant lesion Neuro: Normal speech, Normal tone, Sensation intact, Cranial nerves 3-12 NL, Reflexes 2+, Other (Unsteady gait) Psych/Mental Status: Mental status NL, Mood NL Labs/Xrays Labs Test 01/08/25 12:41 01/08/25 12:27 Range/Units White Blood Count 7.7 4.4-10.8 10^3/uL Red Blood Count 4.86 4.5-5.90 10^6/uL Hemoglobin 14.5 13.5-17.5 g/dL Hematocrit 42.4 41.0-53.0 % Mean Corpuscular Volume 87.3 80.0-100.0 fL Mean Corpuscular Hemoglobin 29.8 28.0-32.0 pg Mean Corpuscular Hemoglobin Concent 34.2 32.0-36.0 g/dL Red Cell Distribution Width 15.3 H 11.8-14.3 % Platelet Count 251 140-450 10^3/uL Mean Platelet Volume 8.3 6.9-10.8 fL Neutrophils (%) (Auto) 63.4 37.0-80.0 % Lymphocytes (%) (Auto) 27.8 10.0-50.0 % Monocytes (%) (Auto) 6.6 0.0-12.0 % Eosinophils (%) (Auto) 1.2 0.0-7.0 % Basophils (%) (Auto) 1.0 0.0-2.0 % Neutrophils # (Auto) 4.9 1.6-8.6 10 ^3/uL Lymphocytes # (Auto) 2.1 0.4-5.4 10 ^3/uL Monocytes # (Auto) 0.5 0-1.3 10 ^3/uL Eosinophils # (Auto) 0.1 0-0.8 10 ^3/uL Basophils # (Auto) 0.1 0-0.2 10 ^3/uL Nucleated Red Blood Cells 0.0 % Sodium Level 140 136-145 mmol/L Potassium Level 4.6 3.5-5.1 mmol/L Chloride Level 110 H 98-107 mmol/L Carbon Dioxide Level 27 20-31 mmol/L Anion Gap 3 L 5-15 Blood Urea Nitrogen 10 9-23 mg/dL Creatinine 0.93 0.700-1.30 mg/dL Glomerular Filtration Rate Calc 95 >90 mL/min BUN/Creatinine Ratio 10.8 10.0-20.0 Serum Glucose 180 H 74-106 mg/dL Calcium Level 9.2 8.7-10.4 mg/dL Urine Color Light-yellow Yellow Urine Clarity Clear Clear Urine pH 6.0 5.0-9.0 Urine Specific [place] 1.014 1.001-1.035 Urine Protein Negative Negative Urine Ketones Negative Negative Urine Blood Negative Negative /uL Urine Nitrite Negative Negative Urine Bilirubin Negative Negative Urine Urobilinogen Normal Negative mg/dL Urine Leukocyte Esterase Negative Negative /uL Urine RBC 1 0 - 3 /hpf Urine Microscopic WBC < 1 0-3 /HPF Urine Squamous Epithelial Cells Few <5 /hpf Urine Bacteria None seen None Seen /hpf Urine Glucose 2+ H Normal mg/dL SEPSIS Sepsis Screen Date sepsis recognized/suspect: Jan 08, 2025 Time Sepsis recognized/suspect: 1053 Recent Procedure: No On Antibiotic Therapy: No Respiratory Rate >20: No Heart Rate >90: No Temp<36 C (96.8 F) or >38.3 C: No SBP <90 or MAP <65 mmHG: No New Acute Mental Status Change: No Is the patient on CPAP, BIPAP,: No Physician Orders Atorvastatin (Lipitor) (01/08/25 22:00) Amlodipine Tablet (Norvasc Tablet) (01/09/25 10:00) Clonidine Hcl Tablet (Catapres Tablet) (01/08/25 13:45) Glucose Blood (Accu-Chek Comfort Curve T (01/08/25 17:00) Insulin R (Human) (Insulin R) (01/08/25 22:00) Insulin R (Human) (Insulin R) (01/08/25 17:00) Dextrose 50% Syringe (01/08/25 13:45) Allergies (01/08/25 13:37) Code Status (01/08/25 13:37) Sodium Chloride Lock (Saline Lock Ns) (01/08/25 14:00) Oxygen Per Hour (01/08/25 13:37) Hydrocodone-Acet 5/325mg Tab ([place] 5/32 (01/08/25 13:45) Ondansetron Hcl (Zofran) (01/08/25 13:45) Docusate Sodium Capsule (Colace Capsule) (01/08/25 13:45) Complete Blood Count (01/09/25 04:00) Comprehensive Metabolic Panel (01/09/25 04:00) Condition: Serious (01/08/25 13:37) Acetaminophen Tablet (Tylenol Tablet) (01/08/25 13:45) Bedrest With Bathroom Privileg (01/08/25 13:37) Sequential Compression Device (01/08/25 ) Consistent Carb(Ccho)Diabetes (01/08/25 Dinner) Metoprolol Tartrate Tablet (Lopressor Ta (01/08/25 22:00) Vital Signs Date Time Temp Pulse Resp B/P (MAP) Pulse Ox O2 Delivery O2 Flow Rate FiO2 01/08/25 10:54 98.0 80 16 178/89 100 98.0 Laboratory Tests Test 01/08/25 12:41 White Blood Count 7.7 10^3/uL (4.4-10.8) Assessment/Plan Assessment/Plan Wound dehiscence Hypertensive urgency Diabetes mellitus with hyperglycemia Plan 1. Admit to med surge unit 2. Breathing treatment 3. Pain control management 4. Management of fluids and electrolytes 5. Consultation for hospitalist/surgery 6. Diagnostic tests chest x-ray 7. DVT prophylaxis-on SCDs 8. Repeat labs CBC, CMP in a.m. 9. Continue with current medical management 10. Treatment plan discussed with patient and RN. Patient verbalized chanii cecil. Plan discussed with: Patient, Other (RN) My Orders Orders - ANGELO WILKERSON DNP Procedure Category Date Status Time Atorvastatin (Lipitor) PHA 01/08/25 In Process 22:00 Amlodipine Tablet PHA 01/09/25 In Process (Norvasc Tablet) 10:00 Clonidine Hcl Tablet PHA 01/08/25 In Process (Catapres Tablet) 13:45 Glucose Blood PHA 01/08/25 In Process (Accu-Chek Comfort 17:00 Insulin R (Human) PHA 01/08/25 In Process (Insulin R) 22:00 Insulin R (Human) PHA 01/08/25 In Process (Insulin R) 17:00 Dextrose 50% Syringe PHA 01/08/25 In Process 13:45 Allergies [place] 01/08/25 In Process 13:37 Code Status CODE 01/08/25 Transmitted 13:37 Sodium Chloride Lock PHA 01/08/25 In Process (Saline Lock Ns) 14:00 Oxygen Per Hour RT 01/08/25 Transmitted 13:37 Hydrocodone-Acet PHA 01/08/25 In Process 5/325mg Tab ([place] 13:45 Ondansetron Hcl PHA 01/08/25 In Process (Zofran) 13:45 Docusate Sodium PHA 01/08/25 In Process Capsule (Colace 13:45 Complete Blood Count LAB 01/09/25 Verified 04:00 Comprehensive LAB 01/09/25 Verified Metabolic Panel 04:00 Condition: Serious [place] 01/08/25 In Process 13:37 Acetaminophen Tablet PHA 01/08/25 In Process (Tylenol Tablet) 13:45 Bedrest With Bathroom [place] 01/08/25 In Process Privileg 13:37 Sequential [place] 01/08/25 In Process Compression Device Consistent DIET 01/08/25 Transmitted Carb(Ccho)Diabetes Dinner Metoprolol Tartrate PHA 01/08/25 In Process Tablet (Lopressor Ta 22:00 Problem List: (1) Wound dehiscence (2) Hypertensive urgency (3) Diabetes mellitus with hyperglycemia Date of Service: Jan 08, 2025 Billing Provider: ANGELO WILKERSON DNP Common Visit Codes: [id number] INP/OBS CARE (HIGH) ANGELO WILKERSON DNP Jan 08, 2025 14:20
[2025-01-08] MEDS ORDERED: NITROGLYCERIN 0.4 MG SL TAB SL PRN (14:30)
[2025-01-08] MEDS ORDERED: MORPHINE SULFATE INJ 2 MG/ml SYRG IV PRN (14:30)
[2025-01-08] MEDS: ACCU-CHEK COMFORT CURVE STRIP VI SCH (17:00)
[2025-01-08] MEDS: InsuLIN REG 1unit/0.01ml Soln (100units/ml) SC SCH ×2 (17:29→23:33)
[2025-01-08 23:13] VITALS: RESP 18; O2SAT 98
[2025-01-08] MEDS: ATORVASTATIN 20 MG TAB PO SCH (23:25)
[2025-01-08] MEDS: METOPROLOL TARTRATE 25 MG TAB PO SCH (23:26)
[2025-01-09 04:38] LABS: Hematocrit 44.9 % (41.0-53.0); Hemoglobin 15.2 g/dL (13.5-17.5); Mean Corpuscular Hemoglobin 30.0 pg (28.0-32.0); Mean Corpuscular Volume 88.8 fL (80.0-100.0); Nucleated Red Blood Cells % 0.1 %
[2025-01-09 04:53] LABS: Alanine Aminotransferase 15 U/L (7-40); Albumin 4.6 g/dL (3.2-4.8); Alkaline Phosphatase 99 U/L (46-116); Anion Gap 6 (5-15); BUN/Creatinine Ratio 7.8 (10.0-20.0); Calcium 9.4 mg/dL (8.7-10.4); Carbon Dioxide 25 mmol/L (20-31); Potassium 3.8 mmol/L (3.5-5.1); Sodium 141 mmol/L (136-145); Total Protein 7.5 g/dL (5.7-8.2)
[2025-01-09 04:54] LABS: Bilirubin, Total 0.5 mg/dL (0.2-1.0); Blood Urea Nitrogen 7 mg/dL (9-23); Chloride 110 mmol/L (98-107); Glucose 133 mg/dL (74-106)
[2025-01-09 10:19] VITALS: BP 119/71; PULSE 76; RESP 16; TEMP 97.7; O2SAT 100
== END 2025-01-09 11:40 | disposition left against medical advice (07) | DRG 921 ==
LOC: ER 10:52 → OVERFLOW 14:19
PROVIDERS: ADMIT Internal Medicine; ATTEND Internal Medicine
DX: T81.31XA Disruption of external operation (surgical) wound, not elsewhere classified, initial encounter (principal); E11.65 Type 2 diabetes mellitus with hyperglycemia; I16.0 Hypertensive urgency; I10 Essential (primary) hypertension; E78.5 Hyperlipidemia, unspecified; Y92.89 Other specified places as the place of occurrence of the external cause; Z89.512 Acquired absence of left leg below knee; Z79.899 Other long term (current) drug therapy; Y84.8 Other medical procedures as the cause of abnormal reaction of the patient, or of later complication, without mention of misadventure at the time of the procedure
CPT/HCPCS: 36415; 80048; 80053; 81001; 82962; 85025; G0378; J1815